=== PATIENT | female | born 1970 ===

== ENCOUNTER 2020-08-21 08:46 | Outpatient (REF) | payer MEDICAID, SELFPAY | END 2020-08-21 08:47 | disposition home or self-care (01) | LOC: HO.LAB 08:46 | PROVIDERS: PCP Internal Medicine Geriatric Medicine; Visit Provider Internal Medicine | DX: Z20.828 Contact with and (suspected) exposure to other viral communicable diseases (principal) | CPT/HCPCS: C9803; U0003 ==

== ENCOUNTER 2020-11-08 10:49 | Outpatient (REF) | payer MEDICAID, SELFPAY | END 2020-11-08 10:50 | disposition home or self-care (01) | LOC: HO.LAB 10:49 | PROVIDERS: Visit Provider Internal Medicine | DX: Z20.822 Contact with and (suspected) exposure to COVID-19 (principal) | CPT/HCPCS: 36415; C9803; U0003; U0005 ==

== ENCOUNTER 2020-11-29 06:17 | Emergency (ER) | payer MEDICAID, SELFPAY ==
--- NOTE | ~2020-11-29 | CT_ITS ---
EXAMINATION: CT ABDOMEN AND PELVIS WITHOUT CONTRAST CLINICAL INFORMATION: Right flank pain COMPARISON: CT abdomen and pelvis 04/05/2019 TECHNIQUE: Multidetector volumetric imaging was performed from the superior aspect of the liver through the pubic symphysis. Sagittal and coronal reformatted images were obtained on the technologist's workstation. This CT examination was performed using dose optimization techniques as appropriate, variously including the following: *Automated exposure control *Adjustment of mA and/or kV according to patient size (this includes techniques or standardized protocols for targeted exams where dose is matched to indication/reason for exam; i.e. extremities or head) *Use of iterative reconstruction technique DLP: 1470 mGy-cm FINDINGS: LUNG BASES: The lung bases are clear. The heart size is normal. LIVER, GALLBLADDER, AND BILIARY TREE: The liver is mildly enlarged measuring 18 cm in length, normal shape, and diffuse hypo-attenuation. No focal hepatic lesion or biliary ductal dilatation is present. The gallbladder is unremarkable with no evidence of radiopaque gallstones, gallbladder wall thickening, or obvious pericholecystic inflammatory changes. PANCREAS: There is mild focal fatty change around the head of the pancreas similar to previous study. The body and the tail of pancreas appears unremarkable and unchanged. SPLEEN: Unremarkable. ADRENAL GLANDS: Unremarkable. KIDNEYS AND URETERS: The kidneys are normal in size, shape, and attenuation. There is a 6 mm radiopaque calculi lower pole left kidney with adjacent cortical scar. BLADDER: Unremarkable. GASTROINTESTINAL TRACT: There is scattered stool and gas seen throughout the colon without any significant distention. The small bowel loops are normal caliber. The appendix is normal caliber. ABDOMINAL WALL: No significant hernia is appreciated. LYMPH NODES: Normal. VASCULAR: Unremarkable. PELVIC VISCERA: The prostate gland is normal size. There is no free fluid or free air. No abnormal pelvic or inguinal lymph nodes seen. OSSEOUS STRUCTURES: There is no lytic or sclerotic process seen. There are degenerative disc changes with posterior spondylosis and L5-S1 and L4-L5 disc levels. CT/CT abdomen pelvis wo con IMPRESSION: Nonobstructive radiopaque calculi lower pole cortex left kidney with a small cortical scar, stable. There is no radiopaque calculi seen in the right kidney. There is no hydronephrosis.
[2020-11-29 07:07] VITALS: BP 144/74; PULSE 72; RESP 16; TEMP 36.7; O2SAT 96; BMI 56.2
[2020-11-29 07:15] VITALS: BP 139/69; PULSE 68; RESP 16; O2SAT 96
--- NOTE | 2020-11-29 07:21 | ED_ITS ---
HPI - General Adult General Chief complaint: Abdominal Pain Stated complaint: KIDNEY STONES Time Seen by Provider: 11/29/20 07:12 Source: patient Mode of arrival: ambulatory Limitations: language barrier (Patient speaks Lebanese only, I offered cobol application developer but the patient declined and requests that her sister interpret for her) History of Present Illness HPI narrative: 50-year-old female who presents emergency department for evaluation of right flank and right lower quadrant abdominal pain which began suddenly at 3:30 a.m. on the morning arrival. The patient states that she woke up with the pain. She states the pain has been constant, sharp and is 10/10. The pain is associated with nausea without vomiting. She denied frequency, urgency or dysuria. She has not noted any hematuria. She states she has had kidney stones in the past and has required surgical intervention. She believes her last kidney stone was 1 year prior. Patient has a history of a hysterectomy and 1 ovary removed, is also had proc edures to remove kidney stones. She states that she had COVID-19 infection 2 months prior. She reports that she has tested negative since recovering. Related Data Previous Rx's Medication Instructions Recorded gabapentin 400 mg capsule 400 mg PO TID #270 cap 07/04/20 tramadol 50 mg tablet 100 mg PO BID PRN #360 tab 07/04/20 hydromorphone 2 mg PO Q4-6H PRN #14 tab 11/29/20 ondansetron 4 mg PO Q6-8H PRN #14 tab 11/29/20 Allergies Allergy/AdvReac Type Severity Reaction Status Date / Time morphine [Morphine] Allergy Severe ANAPHYLAXIS, Unverified 05/23/20 17:01 shortness of breath Review of Systems Review of Systems: Yes all other systems are reviewed and are negative [facility] [facility] Past Medical History [facility] Narrative: Patient has history of fibromyalgia, migraines, kidney stones, hysterectomy, 1 ovary removed. She denies tobacco use, she denies alcohol and drug use. Social History Social History Advance Directives: No Advance Directives Information Provided: No Physical Exam Vital Signs: Vital Signs: Last Vital Signs Temp 98.1 F 11/29/20 07:07 Pulse 72 11/29/20 08:08 Resp 16 11/29/20 09:14 BP 125/47 L 11/29/20 08:08 Pulse Ox 98 11/29/20 08:08 Body Mass Index 56.2 Const: General: cooperative and in distress moderate (Secondary to pain) Nutritional Appearance: obese Orientation/consciousness: oriented to person and oriented to place Limitations: no limitations HENMT: Head: Yes normal to inspection, Yes normocephalic and Yes atraumatic Ears: external ears normal General nose exam: Normal external nose present Face and sinus: Yes normal facial exam Mouth: Normal oral and palatal mucosa present Throat: Yes posterior oropharynx normal Eyes: Periorbital: periorbital findings normal Eyelids: Yes eyelids normal Conjunctivae: conjunctivae normal Sclerae: sclerae normal Corneas: corneas normal Pupils: Equal, round and reactive pupils present Direct Ophthalmoscopy: normal light reflex Neck: Neck: Yes full ROM, Yes no lymphadenopathy, Yes no meningeal signs, Yes trachea midline and Yes supple Chest: Chest palpation & inspection: normal inspection of the chest and normal palpation of entire chest wall Resp: Effort & Inspection: normal respiratory effort and able to speak in complete sentences Auscultation: clear to auscultation bilaterally Cardio: Rate: regular rate Rhythm: regular rhythm Heart sounds: S1 normal heart sound present, S2 normal heart sound present and no murmurs GI: Inspection: Yes normal to inspection Palpation (GI): Soft to palpation, nontender, no guarding, not rigid and No hepatosplenomegaly present : General: Yes no CVA tenderness Back/Spine/Pelvis: Back: no CVA tenderness Cervical Spine: normal cervical lordosis Thoracic/Lumbar Spine: thoracic and lumbar spine normal to inspection Skin: Lesions: no lesions Rashes: no rashes Wounds: no wounds Neuro: General: oriented to person, oriented to place and no meningeal signs Cranial nerves: Yes CN's II-XII intact bilaterally and Yes Equal, round and reactive pupils present Cognition (Neuro): normal cognition Motor exam (neuro): 5/5 motor strength present throughout Extrem: General: Yes normal to inspection and Yes full ROM Psych: Appearance: well kempt Mental Status: mental status grossly normal Speech and movement: Normal speech and movement present Affect: Other affect and mood findings present (Patient is in pain) Attitude: cooperative Thought process: Normal thought process present Thought content: Normal thought content present Course Course Course Narrative: 50-year-old female who presents emergency department for evaluation of sudden onset of right flank and right lower quadrant abdominal pain which began at 3:30 a.m. on the day of arrival. Patient has a history of kidney stones and she believes that her pain is similar to her kidney stone pain that she has had in the past. Physical examination did reveal a she was in distress secondary to her pain. I ordered Toradol 30 mg IV for her pain and Zofran 4 mg IV for her nausea. I also ordered normal saline x1 L IV. A CBC, CMP, urinalysis and CT scan of the abdomen pelvis without IV contrast will be obtained as well. 1005: The patient did get some relief of her pain with the initial dose of Tylenol however her pain returns required Dilaudid 1 mg IV and Zofran 4 mg IV. Laboratory evaluation did reveal a slightly low platelet count a [id number] otherwise was unremarkable with a negative urinalysis. The patient's CT scan of the abdomen pelvis did not reveal a clear cause for her right-sided abdominal pain, she does have a 6 mm left renal stone. I did discuss these findings with the patient. Given her presentation I suspect that she may have had a very small kidney stone that she passed. The patient will be discharged home and advised to take Tylenol and ibuprofen for pain. For pain not relieved by these 2 medications she is to take Dilaudid 1 mg every 4-6 hours as needed for pain. She was also advised to take Zofran ODT 4 mg every 6-8 hours as needed for nausea and vomiting. The patient's [employer] search revealed that the patient gets tramadol on a regular basis for her fibromyalgia. Medical Decision Making Lab Data Result diagrams: 11/29/20 07:36 11/29/20 07:36 Labs: Lab Results 11/29/20 11/29/20 11/29/20 Range/Units 07:36 07:36 08:11 WBC 7.8 (4.8-10.8) X10*3/uL RBC 4.71 (4.20-5.50) X10*6/uL Hgb 13.4 (12.0-16.0) g/dl Hct 41.8 (37-47) % MCV 88.7 (80-98) fL MCH 28.5 (27.0-33.0) pg MCHC 32.1 (31.0-35.0) g/dl RDW 13.7 (11.0-16.0) % Plt Count 129 L (160-400) X10*3/uL MPV 11.8 (9.4-12.3) fL Immature Gran % (Auto) 0.4 (0.0-0.4) % Neut % (Auto) 78.8 H (45-73) % Lymph % (Auto) 15.4 L (20-40) % [place] % (Auto) 4.1 (2-11) % Eos % (Auto) 1.0 (0-4) % Baso % (Auto) 0.3 (0-2) % Lymph # (Auto) 1.2 (1.2-4.9) X10*3/uL [place] # (Auto) 0.3 (0.1-1.2) X10*3/uL Eos # (Auto) 0.1 (0.0-0.4) X10*3/uL Baso # (Auto) 0.0 (0.0-0.2) X10*3/uL Abs Immat Gran (auto) 0.03 (0.00-0.03) X10*3/uL Absolute Neuts (auto) 6.1 (2.0-8.3) X10*3/uL Absolute Nucleated RBC 0.000 (0.0-0.012) X10*3/uL Nucleated RBC % (auto) 0.0 (0.0-0.2) /100WBC Sodium 139 (135-145) mmol/L Potassium 4.3 (3.3-5.1) mmol/L Chloride 105 (96-108) mmol/L Carbon Dioxide 24 (22-29) mmol/L Anion Gap 14 (12-20) BUN 15 (9-16) mg/dL Creatinine 0.73 (0.5-1.4) mg/dL Estim Creat Clear Calc 120.4 Estimated GFR > 60 Random Glucose 124 H (60-115) mg/dL Calcium 9.4 (8.4-10.2) mg/dL Total Bilirubin 0.4 (0.0-1.0) mg/dL AST 21 (5-31) U/L ALT 28 (0-31) U/L Alkaline Phosphatase 119 H (39-117) U/L Total Protein 6.9 (6.5-8.0) g/dL Albumin 4.1 (3.5-5.0) g/dL Lipase 19 (8-78) U/L Urine Color YELLOW Urine Appearance CLOUDY Urine pH 8.0 (5.0-8.0) Ur Specific [place] 1.020 (1.005-1.025) Urine Protein NEG (NEG-TRACE) MG/DL Urine Glucose (UA) NEG (NEG) MG/DL Urine Ketones NEG (NEG) MG/DL Urine Blood NEG (NEG) Urine Nitrite NEG (NEG) Ur Leukocyte Esterase NEG (NEG) Discharge Plan Discharge Clinical Impression: Renal colic on right side, Nausea Patient Disposition: Home, Self-Care Instructions: Renal Colic (ED) Additional Instructions: Your laboratory evaluation was unremarkable. The CT scan of your abdomen and pelvis without IV contrast did not reveal a clear cause for your pain. Given your presentation and history of kidney stones, I suspect that she had a small kidney stone the past and this is what ca used her pain. You do have a 6 mm kidney stone of the left kidney but this is not causing your pain.0 Take ibuprofen 200 mg pills, 3 pills every 6 hours as needed for pain. Take Tylenol (acetaminophen) 500 mg pills, 2 pills every 4 to 6 hours as needed for pain. For pain not relieved by ibuprofen or Tylenol take Dilaudid (hydromorphone) 2 mg pills, 1 pill every 4-6 hours as needed for pain. This is a narcotic medication and if your concerned about addiction do not get this medication filled or you can ask the pharmacist for less pills. This medication will make you sleepy, do not drive or work while taking this medication. DO NOT take tramadol while you are taking Dilaudid. Follow-up with your doctor in 2 days. Please return to the emergency department if your symptoms get worse or if you develop any symptoms that are concerning to you. Prescriptions: New hydromorphone 2 mg tablet 2 mg PO Q4-6H PRN (Reason: pain) Qty: 14 RF: 0 ondansetron 4 mg tablet,disintegrating 4 mg PO Q6-8H PRN (Reason: nausea and vomiting) Qty: 14 RF: 0 No Action tramadol 50 mg tablet 100 mg PO BID PRN (Reason: pain) Qty: 360 RF: 1 gabapentin 400 mg capsule 400 mg PO TID Qty: 270 RF: 1
[2020-11-29] MEDS: 0.9 % Sodium Chloride 1,000 ML 999 ML IV (07:27)
[2020-11-29] MEDS: ondansetron HCL 4 MG/2 ML VIAL IVPUSH (07:27)
[2020-11-29] MEDS: Ketorolac Tromethamine 30 MG/ML VIAL IVPUSH (07:34)
[2020-11-29 07:40] LABS: MANUAL DIFF FLAG NO
[2020-11-29 07:44] LABS: Basophils Percent Auto 0.3 % (0-2); Eosinophils Absolute Auto 0.1 X10*3/uL (0.0-0.4); Hematocrit 41.8 % (37-47); Hemoglobin 13.4 g/dl (12.0-16.0); Imm Gran Abs Auto 0.03 X10*3/uL (0.00-0.03); Imm Gran Pct Auto 0.4 % (0.0-0.4); Lymphocytes Absolute Auto 1.2 X10*3/uL (1.2-4.9); Lymphocytes Percent Auto 15.4 % (20-40); Mean Corpuscular HGB Conc 32.1 g/dl (31.0-35.0); Mean Corpuscular Hemoglobin 28.5 pg (27.0-33.0); Mean Corpuscular Volume 88.7 fL (80-98); Mean Platelet Volume 11.8 fL (9.4-12.3); Monocytes Absolute Auto 0.3 X10*3/uL (0.1-1.2); Monocytes Percent Auto 4.1 % (2-11); Neutrophils Absolute Auto 6.1 X10*3/uL (2.0-8.3); Neutrophils Percent Auto 78.8 % (45-73); Platelet Count 129 X10*3/uL (160-400); Red Blood Count 4.71 X10*6/uL (4.20-5.50); Red Cell Distribution Width 13.7 % (11.0-16.0); White Blood Count 7.8 X10*3/uL (4.8-10.8)
--- NOTE | 2020-11-29 07:51 | PC.NURSE ---
pt arrives to the ED with 10/10 abdominal pain radiating to flank, has history of kidney stones. pt is alert and oriented x3 and is kyrgyz speaking. respiratory rate is increased but effort is non-labored. pt is crying in pain and moving around in bed. pt denies feeling short of breath at this time. md at bedside during assessment. pt aware of plan of care.
[2020-11-29 08:08] VITALS: BP 125/47; PULSE 72; RESP 16; O2SAT 98
[2020-11-29 08:20] LABS: Alanine Aminotransferase 28 U/L (0-31); Albumin Level 4.1 g/dL (3.5-5.0); Alkaline Phosphatase 119 U/L (39-117); Anion Gap 14 (12-20); Aspartate Amino Transferase 21 U/L (5-31); Bilirubin Total 0.4 mg/dL (0.0-1.0); Blood Urea Nitrogen 15 mg/dL (9-16); Calcium 9.4 mg/dL (8.4-10.2); Carbon Dioxide 24 mmol/L (22-29); Chloride 105 mmol/L (96-108); Creatinine Clr Calc Pharmacy 120.4; Estimated Glomerular Filt Rate > 60; Glucose Random 124 mg/dL (60-115); Lipase 19 U/L (8-78); Potassium 4.3 mmol/L (3.3-5.1); Sodium 139 mmol/L (135-145); Total Protein 6.9 g/dL (6.5-8.0)
[2020-11-29 08:22] LABS: Glucose Urine UA NEG (NEG); Leukocyte Esterase Urine NEG (NEG); Nitrite Urine NEG (NEG); Urine Blood NEG (NEG); Urine Ketones NEG (NEG); Urine Protein NEG (NEG-TRACE)
[2020-11-29 08:23] LABS: Appearance Urine CLOUDY; Color Urine YELLOW
[2020-11-29 09:14] VITALS: RESP 16
[2020-11-29] MEDS: HYDROmorphone HCl 1 MG/ML SYRINGE IVPUSH (09:14)
[2020-11-29 10:19] VITALS: BP 110/42; PULSE 62; RESP 16; O2SAT 96
[2020-11-29 10:41] VITALS: PULSE 82; RESP 16
== END 2020-11-29 10:27 | disposition home or self-care (01) ==
PROVIDERS: Emergency Provider Emergency Medicine Emergency Medical Services; PCP Internal Medicine Geriatric Medicine
DX: N20.0 Calculus of kidney (principal); R10.31 Right lower quadrant pain; R11.0 Nausea; Z79.899 Other long term (current) drug therapy; Z86.16 Personal history of COVID-19
CPT/HCPCS: 36415; 74176; 80053; 81003; 83690; 85025; 96365; 96375; 99284; J1170; J1885; J2405

== ENCOUNTER → 2020-12-18 14:48 | Outpatient (BNVA) | payer MEDICAID, SELFPAY | PROVIDERS: PCP Internal Medicine Geriatric Medicine; Visit Provider Student in an Organized Health Care Education/Training Program | DX: M47.816 Spondylosis without myelopathy or radiculopathy, lumbar region (principal) | CPT/HCPCS: 99212 ==

== ENCOUNTER → 2021-01-14 14:34 | Outpatient (BNVA) | payer MEDICAID, SELFPAY | PROVIDERS: PCP Internal Medicine Geriatric Medicine; Visit Provider Nurse Practitioner Family | DX: M47.816 Spondylosis without myelopathy or radiculopathy, lumbar region (principal); M25.552 Pain in left hip; M53.3 Sacrococcygeal disorders, not elsewhere classified | CPT/HCPCS: 99202 ==

== ENCOUNTER 2021-01-16 08:38 | Outpatient (REF) | payer MEDICAID, SELFPAY ==
--- NOTE | ~2021-01-16 | XR_ITS ---
EXAMINATION: LUMBAR SPINE AND LEFT HIP X-RAY CLINICAL INFORMATION: Spondylosis without myelopathy. Left hip pain. COMPARISON: Previous lumbar spine x-ray August 2016 TECHNIQUE: 3 views of the lumbar spine and 2 views of the left hip FINDINGS: Left hip: Bone alignment is normal. No fracture or dislocation is seen. There is mild left hip arthritis with small osteophytes. Soft tissues are unremarkable. Lumbar spine: There is curvature of the lumbar spine to the left. Bone alignment is otherwise normal. No fracture or dislocation is seen. There is degenerative disc disease at L5-S1. There is lower lumbar spine facet arthritis. There are degenerative changes visualized lower thoracic spine. XR/XR hip LT min 2V IMPRESSION: Left hip: Mild arthritis with small osteophytes. Lumbar spine: Scoliosis and degenerative changes.
--- NOTE | ~2021-01-16 | XR_ITS ---
EXAMINATION: LUMBAR SPINE AND LEFT HIP X-RAY CLINICAL INFORMATION: Spondylosis without myelopathy. Left hip pain. COMPARISON: Previous lumbar spine x-ray August 2016 TECHNIQUE: 3 views of the lumbar spine and 2 views of the left hip FINDINGS: Left hip: Bone alignment is normal. No fracture or dislocation is seen. There is mild left hip arthritis with small osteophytes. Soft tissues are unremarkable. Lumbar spine: There is curvature of the lumbar spine to the left. Bone alignment is otherwise normal. No fracture or dislocation is seen. There is degenerative disc disease at L5-S1. There is lower lumbar spine facet arthritis. There are degenerative changes visualized lower thoracic spine. XR/XR lumbar spine 2-3V IMPRESSION: Left hip: Mild arthritis with small osteophytes. Lumbar spine: Scoliosis and degenerative changes.
== END 2021-01-16 08:39 | disposition home or self-care (01) ==
LOC: HO.XRAY 08:38
PROVIDERS: PCP Internal Medicine Geriatric Medicine; Visit Provider Nurse Practitioner Family
DX: M47.816 Spondylosis without myelopathy or radiculopathy, lumbar region (principal); M25.552 Pain in left hip
CPT/HCPCS: 72100; 73502

== ENCOUNTER → 2021-01-24 15:44 | Outpatient (BNVA) | payer MEDICAID, SELFPAY | PROVIDERS: PCP Internal Medicine Geriatric Medicine; Visit Provider Nurse Practitioner Family | DX: M47.816 Spondylosis without myelopathy or radiculopathy, lumbar region (principal); M53.3 Sacrococcygeal disorders, not elsewhere classified; M16.12 Unilateral primary osteoarthritis, left hip | CPT/HCPCS: 99212 ==

== ENCOUNTER 2021-04-08 06:12 | Outpatient (REF) | payer MEDICAID, SELFPAY | END 2021-04-08 06:13 | disposition home or self-care (01) | LOC: HO.RADIR 06:12 | PROVIDERS: Visit Provider Anesthesiology | DX: Z13.89 Encounter for screening for other disorder (principal) ==

== ENCOUNTER 2021-05-13 06:38 | Outpatient (REF) | payer MEDICAID, SELFPAY | END 2021-05-13 06:39 | disposition home or self-care (01) | LOC: HO.RADIR 06:38 | PROVIDERS: Visit Provider Anesthesiology | DX: Z13.89 Encounter for screening for other disorder (principal) | CPT/HCPCS: J3300; Q9967 ==

== ENCOUNTER 2021-05-27 07:49 | Outpatient (REF) | payer MEDICAID, SELFPAY ==
--- NOTE | ~2021-05-27 | FL_ITS ---
EXAMINATION: XR FLUOROSCOPY WITH IMAGES CLINICAL INFORMATION: Arthritis. COMPARISON: None. TECHNIQUE: Fluoroscopy performed by Dr. Geraldo Hinds. Fluoroscopy time: 0.2 minutes DAP: 5 Gycm2 Images: 2 FINDINGS: Images demonstrate needle placement and contrast injection of the right hip joint. FL/FL guidance in treatment room IMPRESSION: Fluoroscopy guidance for right hip pain management procedure.
== END 2021-05-27 07:50 | disposition home or self-care (01) ==
LOC: HO.RADIR 07:49
PROVIDERS: Visit Provider Anesthesiology
DX: M16.12 Unilateral primary osteoarthritis, left hip (principal); M25.552 Pain in left hip
CPT/HCPCS: 20610; J3300; Q9967

== ENCOUNTER 2021-06-06 10:35 | Day surgery (SDC) | payer MEDICAID, SELFPAY ==
--- NOTE | ~2021-06-06 | FL_ITS ---
EXAMINATION: XR FLUOROSCOPY WITH IMAGES CLINICAL INFORMATION: Back pain. Medial branch block COMPARISON: Radiographs lumbar spine 01/16/2021 TECHNIQUE: Fluoroscopy performed by Dr. Geraldo Hinds. Fluoroscopy time: 0.6 minutes DAP: 16.0 Gycm2 Images: 5 FINDINGS: There are spinal needles overlying the outer right L3, bilateral L4, and bilateral L5 neural foramen. There is contrast seen in the respective nerve sheaths. Some early transforaminal epidural extension is suggested. No visible vascular communication. FL/FL guidance in OR IMPRESSION: Fluoroscopy for pain management procedures.
--- NOTE | 2021-06-06 07:19 | P.HPSUR_ITS ---
Pre-Procedural Eval Section A Date of Service: 06/06/21 The patient is an INPATIENT: No Changes since office visit: Yes Patient answered all questions The History & Physical has been completed within 30 days and I have reviewed it.: No Section B Chief Complaint: Lumbar Spondylosis Details of Present Illness: as above Relevant Family History (Specify if Yes): No Relevant Social History: None Present Medications: see Short Stay Collaborative assessment Medical History: No relevant PMH History of Previous Operations: No relevant previous surgery Allergies: Allergies Allergy/AdvReac Type Severity Reaction Status Date / Time morphine [Morphine] Allergy Severe ANAPHYLAXIS, Verified 05/27/21 11:34 shortness of breath Review of Systems Sugical H&P ROS: Negative: Constitution, Cardiovascular, Respiratory, Neurological, Psychiatric, Hem-Onc, Allergic/Immunologic, Gastrointestinal, Genitourinary, Musculoskeletal, Integumentary, Endocrine and Eyes/Ears /Nose/Throat Exam Surgical H&P Exam: Normal: HEENT, Normal: Heart, Normal: Lungs, Normal: Extremities, Normal: Abdomen, Normal: Skin and Normal: Neurological Plan Diagnosis/Plan: Unchanged I have reviewed the history and physical and performed a pertinent physical examination on my patient. No changes have occurred unless specified.
--- NOTE | 2021-06-06 07:31 | P.OP_ITS ---
Operative Note Operative Note Date of Service: 06/06/21 Narrative: Diagnostic medial branch block L3,L4-5 bilateral Informed consent was explained to the patient. All questions were explained and answered.? The patient was taken inside of the operating room where she was pos itioned prone on the operating table.? Time-out was performed delineating patient's name and date of , correct site, side, the nature of the procedure, patient's allergy, preoperative antibiotic if needed.? All operating room staff was participating in OR time-out procedure.? He is lower back was prepped with ChloraPrep and draped with sterile towels.?C- arm was brought over the operating field and sq picture of L4, L 5 vertebra? and S1 area were delineated on the screen.? Points of interest were delineated as confluence of superior articular process of L4 vertebra bilaterally with corres ponding transverse processes, as well as confluence of superior articular process of L5 vertebra with corresponding transverse processes bilaterally, as well as connection of the sacral alae bilaterally with superior articular process of S1.? The projection of the point of interest to the skin were injected with the small amount of local anesthetic lidocaine 2% 1-1.5 cc.? And after that 5 inch 22 gauge spinal needle was driven sequentially to the point of interest in tunnel vision fashion.? To reach the target the 5 in needle went all the way in with the hub on the skin. When the needle gently contacted the bone small amount of the contrast was injected demonstrating no intravascular and no intrathecal uptake of the contrast.? After that no more than 1 cc of bupivacaine 0.5% was injected into each needle position, a needles were withdrawn sterile Band-Aid were applied.? The patient tolerated procedure well.? He went home without immediate complication. In case of positive outcome radiofrequency ablation with instruments available to us are probably impossible, therefore the only option for this patient would be therapeutic medial branch blocks. ?
[2021-06-06 11:08] VITALS: BP 145/75; PULSE 69; RESP 18; TEMP 36.6; O2SAT 96; BMI 56.9
--- NOTE | 2021-06-06 11:11 | P.CONAN_ITS ---
[facility] Active Problems Active Problems: All Active Problems (Updated 01/27/21 @ 07:46 by Daly pepper, REHABILITATION PSYCHOLOGIST) Osteoarthritis of left hip (Acute) Sacroiliac joint pain (Acute) Left hip pain (Acute) Lumbar spondylosis (Acute) Past Medical History Medical History Lumbar spondylosis Functional capacity: wheelchair bound Family History Family history of problems with anesthesia: Yes Surgical History History of Problems with Anesthesia: Yes Social History Social History Household Members: Spouse Housing: Apartment Alcohol intake: never Advance Directives: No Advance Directives Information Provided: Yes Meds Allergies Allergy/AdvReac Type Severity Reaction Status Date / Time morphine [Morphine] Allergy Severe ANAPHYLAXIS, Verified 05/27/21 11:34 shortness of breath Home Medications Medication Instructions Recorded Confirmed Last Taken Type naproxen sodium 550 mg tablet 550 mg PO BID 12/18/20 01/24/21 Unknown History (Anaprox DS) Exam Exam Date and Time: June 06, 2021 1111 Air[address] Mallampati Class: II (Full neck) TM Dist: >3cm Neck ROM: Limited Loose/Missing/Broken Teeth: No Heart: RRR Lungs: CTA Assessment and Plan Assessment Anesthesia Assessment: Anesthesia Plan Discussed Final Anesthetic Review Family History of Problems with Anesthesia: Yes History of Problems with Anesthesia: Yes NPO: Yes ASA Class: III Final Preanesthetic Review: Meds/Allgs Chart Reviewed, Consent Obtained/Reviewed and Anes Risks/Benef Reviewed Patient Risk: Intermediate Procedure Risk: Intermediate Anesthetic Plan Anesthetic Plan: MAC: Disposition: Standard PACU
--- NOTE | 2021-06-06 12:28 | PM.OP ---
Brief Operative Note Date of Service: 06/06/21 Pre-op diagnosis: Spondylosis lumbar spine, morbid obesity. Post-op diagnosis: same Procedure: Diagnostic medial branch block L3-L4 does ramus L5 bilateral Implants: In a Surgeon: Geraldo Hinds MD Anesthesia: MAC Was an Flume Ride Operator used for this Procedure?: No Estimated blood loss (mL): 0 Pathology: none sent Condition: stable Disposition: PACU
[2021-06-06 12:30] VITALS: BP 136/84; PULSE 95; RESP 16; TEMP 36.1; O2SAT 100
[2021-06-06 12:45] VITALS: BP 127/66; PULSE 61; RESP 16; TEMP 36.1; O2SAT 100
[2021-06-06 13:00] VITALS: BP 137/64; PULSE 55; RESP 16; TEMP 36.1; O2SAT 99
== END 2021-06-06 13:50 | disposition home or self-care (01) ==
PROVIDERS: PCP Internal Medicine Geriatric Medicine; Visit Provider Anesthesiology
PROC: (CPT 64493; principal; 2021-06-06 12:10)
DX: M47.816 Spondylosis without myelopathy or radiculopathy, lumbar region (principal); M54.50 Low back pain, unspecified; M53.3 Sacrococcygeal disorders, not elsewhere classified; M16.12 Unilateral primary osteoarthritis, left hip; Z79.899 Other long term (current) drug therapy; Z88.8 Allergy status to other drugs, medicaments and biological substances
CPT/HCPCS: 64493; 64494 ×2; J2250; Q9967

== ENCOUNTER → 2021-06-13 10:03 | Outpatient (BNVA) | payer MEDICAID, SELFPAY | PROVIDERS: PCP Internal Medicine Geriatric Medicine; Visit Provider Nurse Practitioner Family ==

== ENCOUNTER 2022-03-05 12:04 | Outpatient (REF) | payer MEDICAID, SELFPAY ==
[2022-03-05 12:57] LABS: Alanine Aminotransferase 17 U/L (0-31); Aspartate Amino Transferase 21 U/L (5-31); C Reactive Protein 1.08 mg/dL (< or = 0.50); Estimated Glomerular Filt Rate > 60
[2022-03-05 13:24] LABS: Erythrocyte Sedimentation Rate 15 MM/HR (0-20)
== END 2022-03-05 12:05 | disposition home or self-care (01) ==
LOC: HO.LAB 12:04
PROVIDERS: PCP Internal Medicine Geriatric Medicine; Visit Provider Nurse Practitioner Family
DX: M47.816 Spondylosis without myelopathy or radiculopathy, lumbar region (principal); M25.552 Pain in left hip; Z79.899 Other long term (current) drug therapy
CPT/HCPCS: 36415; 82565; 84450; 84460; 85652; 86140; 99212

== ENCOUNTER 2022-03-20 08:44 | Outpatient (REF) | payer MEDICAID, SELFPAY ==
--- NOTE | ~2022-03-20 | MM_ITS ---
EXAMINATION: MM SCREENING DIGITAL BREAST TOMOSYNTHESIS, BILATERAL CLINICAL INFORMATION: Screening. Asymptomatic. The lifetime risk of breast cancer based on the Tyrer-Cuzick Model is 13%. COMPARISON: Mammography: 08/10/2019, 10/08/2012 TECHNIQUE: Digital breast tomosynthesis is performed in both the craniocaudal and mediolateral oblique views along with computer-aided detection (CAD). Synthesized 2D images are generated from the tomosynthesis. Additional left CC view is provided. FINDINGS: There are scattered areas of fibroglandular density (ACR BI-RADS breast composition Category b). There are no significant masses, abnormal calcifications, or other abnormalities. Parenchymal pattern is similar to prior studies. There is incidental low left axillary tail node again seen. No developing density or architectural abnormality. The skin contours are smooth. MM/MM tomosynthesis screening BI IMPRESSION: No mammographic evidence of malignancy. ASSESSMENT: BI-RADS 1: Negative RECOMMENDATION: Routine annual mammography screening. This patient's information was entered into a reminder system with a target due date for their next mammogram.
== END 2022-03-20 08:45 | disposition home or self-care (01) ==
LOC: HO.MAMMO 08:44
PROVIDERS: Visit Provider Internal Medicine Geriatric Medicine
DX: Z12.31 Encounter for screening mammogram for malignant neoplasm of breast (principal)
CPT/HCPCS: 77063; 77067

== ENCOUNTER → 2022-10-20 08:30 | Outpatient (BNVA) | payer MEDICAID, SELFPAY | PROVIDERS: PCP Internal Medicine Geriatric Medicine; Visit Provider Nurse Practitioner Family | DX: M47.816 Spondylosis without myelopathy or radiculopathy, lumbar region (principal); M25.562 Pain in left knee; M79.7 Fibromyalgia | CPT/HCPCS: 99212 ==

== ENCOUNTER 2022-11-27 08:40 | Outpatient (REF) | payer MEDICAID, SELFPAY ==
[2022-11-27 09:59] LABS: Alanine Aminotransferase 13 U/L (0-31); Albumin Level 3.8 g/dL (3.5-5.0); Alkaline Phosphatase 134 U/L (39-117); Anion Gap 10 (12-20); Aspartate Amino Transferase 18 U/L (5-31); Bilirubin Total 0.7 mg/dL (0.0-1.0); Blood Urea Nitrogen 13 mg/dL (9-16); Calcium 9.3 mg/dL (8.4-10.2); Carbon Dioxide 27 mmol/L (22-29); Chloride 107 mmol/L (96-108); Estimated Glomerular Filt Rate > 60; Glucose Random 83 mg/dL (60-115); Potassium 4.2 mmol/L (3.3-5.1); Sodium 140 mmol/L (135-145); Total Protein 6.1 g/dL (6.5-8.0)
[2022-11-27 10:12] LABS: Amphetamine Screen Urine Not Detected (Not Detect); Barbiturates, Urine Not Detected (Not Detect); Benzodiazepines Screen Urine Not Detected (Not Detect); Cannabinoid Screen Urine Not Detected (Not Detect); Cocaine Screen Urine Not Detected (Not Detect); Fentanyl, urine Not Detected (Not Detect); Opiate Screen Urine Not Detected (Not Detect); Phencyclidine Screen Urine Not Detected (Not Detect)
== END 2022-11-27 08:41 | disposition home or self-care (01) ==
LOC: HO.LAB 08:40
PROVIDERS: PCP Internal Medicine Geriatric Medicine; Visit Provider Nurse Practitioner Family
DX: M47.816 Spondylosis without myelopathy or radiculopathy, lumbar region (principal); Z79.899 Other long term (current) drug therapy
CPT/HCPCS: 80053; 80307; 80373

== ENCOUNTER 2023-01-04 15:12 | Outpatient (REF) | payer MEDICAID, SELFPAY ==
--- NOTE | ~2023-01-04 | XR_ITS ---
EXAMINATION: XR KNEE, LEFT CLINICAL INFORMATION: Pain x4 days. COMPARISON: None available. TECHNIQUE: Four views of the left knee. FINDINGS: There is loss of tricompartment joint space with mild medial and patellofemoral compartment periarticular spurring. No loose bodies, acute fracture or dislocation seen. No abnormal joint effusion. XR/XR knee LT 4V IMPRESSION: Degenerative arthritic changes left knee. No visible acute fracture or dislocation seen.
== END 2023-01-04 15:13 | disposition home or self-care (01) ==
LOC: HO.HHCX 15:12
PROVIDERS: PCP Internal Medicine Geriatric Medicine; Visit Provider Emergency Medicine
DX: M25.562 Pain in left knee (principal)
CPT/HCPCS: 73564

== ENCOUNTER 2023-01-11 09:00 | Outpatient (RCR) | payer MEDICAID, SELFPAY ==
--- NOTE | 2023-02-15 09:55 | MHC.PT.DC ---
[facility] [place] Office [place] Office [place] Office [address] Lew Evans [address] [phone] F: [phone] F: [phone] F: [phone] F: [phone] Physical Therapy Discharge Report Diagnosis: LEFT KNEE AND LOW BACK PAIN (KP) Date of Surgery: Date of Evaluation: 12/10/22 Date of Discharge: 02/15/23 Treatments to Date: 6 Cancellations to Date: 3 No Shows to Date: 1 Discharge Status: Patient Elected to Stop Discharge Summary: Pt did not schedule additional visits and attempts to reach by phone where unsuccessful. As it has been over 30 days we will discharge the current chart. Electronically signed by: Kylee Parr PT, DPT Please sign and return to therapist. Thank you for your referral.
== END 2023-02-15 09:54 | disposition home or self-care (01) ==
LOC: HO.PT 09:00
PROVIDERS: PCP Internal Medicine Geriatric Medicine; Visit Provider Nurse Practitioner Family
DX: M25.562 Pain in left knee (principal); M47.816 Spondylosis without myelopathy or radiculopathy, lumbar region
CPT/HCPCS: 97110; 97162

== ENCOUNTER 2023-02-23 07:52 | Outpatient (REF) | payer MEDICAID, SELFPAY | END 2023-02-23 07:53 | disposition home or self-care (01) | LOC: HO.HOSX 07:52 | PROVIDERS: Visit Provider Physician Assistant | DX: M25.562 Pain in left knee (principal) | CPT/HCPCS: 20610; 73560; 73565; 99212; J1040 ==

== ENCOUNTER 2023-05-06 09:24 | Outpatient (AMB) | payer MEDICAID, SELFPAY ==
--- NOTE | 2023-05-06 09:28 | A.OFFVIS_ITS ---
Intake Vital Signs 05/06/23 09:38 Height 5 ft 2 in Weight 237 lb 7.005 oz BMI 43.4 BP 112/68 Blood Pressure Location Lt brachial Position Sitting Pulse 62 Pulse Source Pulse Oximeter Temp 97.3 F Temp Source Skin Pulse Oximetry (%) 96 Oxygen Delivery Method Room Air Intake Visit Reasons: lbp Intake Note: Patient here for low back pain. Would like to renew placard. Relationship Consultant Required: Yes Relationship Consultant Language: Mountain [place] Glac[place] Guide Name: Sister Information Interpreted: clinical only Accompanied by: Sister Allergies morphine [Morphine] Allergy (Severe, Verified 05/06/23 09:30) ANAPHYLAXIS, shortness of breath Medication List - Last Reconciled 05/06/23 by Arik Weber MD amitriptyline 10 mg PO BEDTIME calcium carbonate-vitamin D3 500 mg-5 mcg (200 unit) (Oyster Shell Calcium- Vitamin D3) 1 tab PO BID clotrimazole-betamethasone 1-0.05 % appl topical docusate sodium 100 mg PO BID Donut pillow As directed gabapentin 600 mg PO TID ibuprofen 600 mg PO Q8H PRN naproxen sodium (Anaprox DS) 550 mg PO BID PRN tizanidine 2 mg PO BEDTIME PRN tramadol 100 mg (2 x 50 mg) PO BID PRN HPI HPI Comments History of Present Illness Details The patient presents with her sister who translates today. Patient has been seen for fibromyalgia and osteoarthritis. She again describes fairly widespread pains in the neck, shoulders, hands, forearms, lower back, lateral hips, and knees. The knees have significant osteoarthritis. She did get a corticosteroid injection earlier this year in the left knee from Orthopedics and that was helpful. She remains on gabapentin 600 mg t.i.d., tizanidine 2 mg q.h.s., amitriptyline 10 mg at night, and tramadol 100 b.i.d.. She says she tolerates the medications without any sedation. She is requesting a handicap placard. She does use a cane often when walking. In the past she had some benefit with lidocaine patches requesting that prescription. She also had improvement in the past with an injection in the back about 2 years ago. [facility] Medical History Arthritis Fibromyalgia Lumbar spondylosis Migraines Surgical History H/O gastric bypass Hx of bilateral cataract extraction Hx of hysterectomy Family History Mother Hypertension Stroke Dementia Father Heart disease Thyroid disease Sister Thyroid disease Social History Household Members: Spouse Housing: Apartment Alcohol intake: never Patient Tobacco Use Status: Never used Tobacco Review of Systems Const Details: Low stamina. Not sleeping well. Negative for appetite change, weight change, fever, chills, malaise Card Details: Negative chest pain, edema and syncope Resp Details: Negative for SOB, cough and wheezing GI Details: Negative indigestion/heartburn, nausea, abdominal pain, bowel changes, diarrhea, constipation and bloody stool. Details: Negative for dysuria, hematuria, nocturia, decreased force/flow and genital discharge Neuro Details: Negative for epilepsy, palsy, stroke, changes in speech, tingling and weakness Psych Details: Negative for anxiety, depression and stress Endo Details: Negative for polyuria and polydypsia Baljinder/Lymph Details: Negative for excessive bruising or bleeding. Physical Exam Vital Signs: Last Vital Signs Temp 97.3 F 05/06/23 09:38 Pulse 62 05/06/23 09:38 BP 112/68 05/06/23 09:38 Pulse Ox 96 05/06/23 09:38 Oxygen Delivery Method Room Air 05/06/23 09:38 BMI result Body Mass Index 43.4 APPEARANCE: Patient in no acute distress EYES no redness, pupils equal and reactive to light, eyelids normal. No temporal artery tenderness, redness or swelling. EXTREMITIES: No edema, no calf tenderness, normal peripheral pulses. NEURO: Oriented and alert x3. No focal weakness. Reflexes symmetric. Gait normal. SKIN: No inflammatory or neoplastic lesions. Normal color and turgor JOINT EXAM: Cervical Spine:? Full range of motion without pain; no tenderness. Thoracic Spine:? No scoliosis.? No tenderness on palpation. Lumbar Spine:? Alignment normal.? Pain with flexion at 60 degrees or any attempts at extension, tenderness to palpation over the lumbar spine.? Widespread diffuse tenderness to palpation throughout the lumbar spinal muscles and over bilateral posterior buttocks. Hands:? Normal pain-free range of motion with diffuse tenderness across the joints. No areas of bony or soft tissue swelling, increased warmth or erythema. 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 Wrists: Normal pain-free range of motion with slight dorsal tenderness but no swelling, increased warmth or erythema. Elbows: Normal pain-free range of motion without tenderness, swelling, increased warmth or erythema.? Widespread diffuse tenderness to palpation down the forea tommy. Shoulders:? Full range of motion with mild discomfort over the trapezius regions with extremes of normal range of motion. There is tenderness over the trapezius and anterior shoulder regions. No abductor weakness, swelling, increased warmth or erythema.? Hips: Full range of motion with mild lumbar pain at the extremes. No groin pain with motion. Hip bursa:? No tenderness to palpation. Knees:? Normal pain-free range of motion with mild medial tenderness but no effusion tenderness, swelling, increased warmth or erythema.? There is slight patellofemoral crepitus. Ankles:? Normal pain-free range of motion without tenderness, swelling, increased warmth or erythema. Feet:? Normal pain-free range of motion without tenderness, swelling, increased warmth or erythema. Tender points:?Tenderness to digital palpation at the occiput, trapezius, second rib, lateral epicondyle, knees, greater trochanter and gluteal area bilaterally. Results Reviewed Results Reviewed: [facility] [address] [place] [address] Drive [address] [place] [address] XRay Report Signed Patient: Sammi Kim MR#: [id number] : 1970 Acct:[id number] Age/Sex: 52 / F ADM Date: 02/23/23 Ordering Physician: Heather Rios PA-C Date of Service: 02/23/23 Procedure(s): XR knee standing BI Accession Number(s): [id number] cc: Heather Rios PA-C~ EXAMINATION: XR KNEE AP STANDING, LEFT KNEE CLINICAL INFORMATION: Left knee pain COMPARISON: None available. TECHNIQUE: AP bilateral standing view of the knees, 3 view left knee FINDINGS: On standing knee view, left knee is higher than the right. Bones are demineralized. No acute fracture or dislocation. Right: Severe medial, moderate lateral knee joint narrowings. Degenerative spurring. Left: Tricompartment spurring. Moderate medial, lateral knee and patellofemoral narrowings. Question small suprapatellar effusion. XR/XR knee standing BI IMPRESSION: Degenerative changes bilateral knees. Dictated By: Loren Crane MD Assessment & Plan Assessment & Plan (1) Lumbar spondylosis: Comment: hx diagnostic Medial Branch Block 06/06/2021 Code(s): M47.816 - Spondylosis without myelopathy or radiculopathy, lumbar region (2) Fibromyalgia: Code(s): M79.7 - Fibromyalgia Plan: She again has fatigue and widespread pains consistent with fibromyalgia. I do not see signs of an active inflammatory disease. There is more back pain than one would see with fibromyalgia and this is likely because of accompanying lumbar osteoarthritis. Since she did get a benefit in the past with pain management giving her an injection so I will try to set up another appointment for that. I think she can continue with her other medicines as above and we will add back some lidocaine patches 5%. A recheck in 6 months would be reason able. Orders: Referrals Pain Management Referral M47.816 - Spondylosis without myelopathy or radiculopathy, lumbar region Medications: New lidocaine 5% leave on most painful area for up to 12 hrs 1 patch topical DAILY 30 ea 5RF M47.816 - Spondylosis without myelopathy or radiculopathy, lumbar region Refilled gabapentin 600 mg PO TID 90 tabs 5RF M79.7 - Fibromyalgia Coding Level of Care Code Est Pt Level 3 (31869) Diagnoses Lumbar spondylosis M47.816 Fibromyalgia M79.7
[2023-05-06 09:38] VITALS: BP 112/68; PULSE 62; TEMP 36.3; O2SAT 96; BMI 43.4
== END 2023-05-06 10:02 | disposition home or self-care (01) ==
PROVIDERS: PCP Internal Medicine Geriatric Medicine; Visit Provider Internal Medicine Rheumatology
DX: M47.816 Spondylosis without myelopathy or radiculopathy, lumbar region (principal); M79.7 Fibromyalgia
CPT/HCPCS: 99213

== ENCOUNTER → 2023-05-06 09:24 | Outpatient (BNVA) | payer MEDICAID, SELFPAY | PROVIDERS: PCP Internal Medicine Geriatric Medicine; Visit Provider Internal Medicine Rheumatology | DX: M47.816 Spondylosis without myelopathy or radiculopathy, lumbar region (principal); M79.7 Fibromyalgia | CPT/HCPCS: 99212 ==

== ENCOUNTER 2023-05-20 13:05 | Outpatient (AMB) | payer MEDICAID, SELFPAY ==
[2023-05-20 13:14] VITALS: BP 114/62; PULSE 92; RESP 16; O2SAT 96; BMI 43.2
--- NOTE | 2023-05-20 13:14 | MHC.OFFVIS ---
Intake Vital Signs 05/20/23 13:14 Height 5 ft 2 in Weight 236 lb 2 oz BMI 43.2 BP 114/62 Blood Pressure Location Lt brachial Position Sitting Respiration 16 Pulse 92 Pulse Source Pulse Oximeter Pulse Oximetry (%) 96 Oxygen Delivery Method Room Air Intake Visit Reasons: Spondylosis w/o myelopathy or radiculopathy,lumbar Allergies morphine [Morphine] Allergy (Severe, Verified 05/20/23 13:15) ANAPHYLAXIS, shortness of breath HPI HPI Comments History of Present Illness Details Sammi is a very pleasant 52 year old female who presents back to the office today for follow up. Last seen here in 2020 for diagnostic lumbar MBBs. She is accompanied by her sister who interprets per patient request. Patient reports she was scheduled for RFA but covid happened and procedure was cancelled, she was then lost to follow up. She reports relief after MBB 06/2021 that lasted approx 2 months. She recently completed physical therapy 01/2023. Taking gabapentin and tramadol with no improvement of her pain. Pain today is 6/10 across lower back with intermittent radiation into her thighs but not past the level of the knee. Denies shooting or shocking pain. Denies red flag symptoms including new loss of bowel, bladder or saddle anesthesia. Prior: Today's visit was conducted via telephone to discuss results of Sammi's diagnostic MBB performed on 06/06/[address] Hnids PRIOR: Sammi returns to the office, accompanied by her sister, to review the results of her left hip and lumbar spine xrays. She states her left hip is becoming more bothersome and is unable to lay on her left side comfortably at night time. She also has BLE muscle spasms that are worse at night. PRIOR: Sammi is a pleasant 50 year old female who presents to the office with low back pain. She is accompanied by her sister who she is requesting translate, as she is mostly [place]ian speaking. She denied a music historian offered by our office. She states the pain started years ago without any inciting events, but in the past four months has been more exacerbated. Her pain radiates across the low pain and into the left hip with occasional radiation to the ankle when laying down or standing for a prolonged period. She is able to flex forward with minimal discomfort but has an exacerbation in pain when returning to a standing position. Denies any numbness, tingling, saddle anesthesia, weakness or bowel/bladder dysfunction. The pain is worse in the evening and less severe in the afternoon.? She reports pain onset was gradual, constant and rates the pain a 7/10. She states the pain is interfering with sleep and she cannot function normally.? The patient reports the pain in terms of tissue damage as stabbing. She has tried OTC medications including advil, aleve and tylenol, as well as apercreme and ice hot with minimal improvement in her pain. Lidocaine has offered the most relief, which is only moderate. Previously she has tried physical therapy, the last being over two years ago which she could not tolerate, as it was exacerbating her pain.? Denies any chiropractic manipulation, massage or acupuncture. Denies any previous back injections or? surgery. She last had imaging of her lumbar spine over 5 years ago. Previous records report degenerative changes and bilateral facet athropathy. [facility] Medical History Arthritis Fibromyalgia Lumbar spondylosis Migraines Surgical History H/O gastric bypass Hx of bilateral cataract extraction Hx of hysterectomy Family History Mother Hypertension Stroke Dementia Father Heart disease Thyroid disease Sister Thyroid disease Social History Household Members: Spouse Housing: Apartment Alcohol intake: never Patient Tobacco Use Status: Never used Tobacco Review of Systems Const All systems reviewed & are unremarkable except as noted in HPI and below Physical Exam Vital Signs: Last Vital Signs Pulse 92 05/20/23 13:14 Resp 16 05/20/23 13:14 BP 114/62 05/20/23 13:14 Pulse Ox 96 05/20/23 13:14 Oxygen Delivery Method Room Air 05/20/23 13:14 BMI result Body Mass Index 43.2 General: awake, alert, oriented. Answers questions appropriately. Fully engaged in examination. Skin: warm, dry, intact HEENT: Normocephalic. Hearing intact. Cardiac: External chest normal in appearance. Respiratory: No cough, audible wheezing or stridor. Abdomen: without gross distension. MS: No obvious swelling or deformities. Able to stand on bilateral tiptoes and bilateral heels.? Able to transition from sit to stand unassisted. Ambulates with bilaterally normal heel strike and toe off Tenderness to palpation over lumber paraspinal muscles SLR with and without dorsiflexion negative bilaterally Jefferson positive for localized pain increase over lumbar area, negative for radiation of pain to groin or legs. Facet loading positive bilaterall Neurological: Oriented to person, place, time and situation. Thought process intact. Psychiatric: Appropriate mood and affect. Good judgment and insight. Results Reviewed Results Reviewed: 01/16/2021 EXAMINATION: LUMBAR SPINE AND LEFT HIP X-RAY FINDINGS: Left hip: Bone alignment is normal. No fracture or dislocation is seen. There is mild left hip arthritis with small osteophytes. Soft tissues are unremarkable. Lumbar spine: There is curvature of the lumbar spine to the left. Bone alignment is otherwise normal. No fracture or dislocation is seen. There is degenerative disc disease at L5-S1. There is lower lumbar spine facet arthritis. There are degenerative changes visualized lower thoracic spine. IMPRESSION: Left hip: Mild arthritis with small osteophytes. Lumbar spine: Scoliosis and degenerative changes. Assessment & Plan Assessment & Plan (1) Lumbar spondylosis: Comment: hx diagnostic Medial Branch Block 06/06/2021 Code(s): M47.816 - Spondylosis without myelopathy or radiculopathy, lumbar region (2) Lumbar facet arthropathy: Code(s): M47.816 - Spondylosis without myelopathy or radiculopathy, lumbar region Plan Sammi presents back to the office today, accompanied by her sister, for follow up lower back pain. History, physical exam and provocative testing most consistent with lumbar facet arthropathy. Patient underwent L3-L4 DR L5 diagnostic MBBs in 06/2021 with 2 months of pain relief. Unfortunately due to COVID outbreak and restrictions on elective procedures her radiofrequency ablation was canceled and she subsequently was lost to follow-up. Discussed options for treatment including diagnostic interventional testing, steroid injections, peripheral nerve stimulation with Sprint, RFA and more permanent neuromodulation. Informational pamphlets provided. Will schedule for fluoroscopy guided bilateral L3-L4 DR L5 diagnostic MBB use with local anesthetic, patient will receive sublingual Ativan prior to procedure. She reports previous procedures required premedication with antianxiety agents. Justification for interventional therapy: ? Patient with average pain > 6/10 ? Patient has exhausted conservative therapy, physical therapy, NSAIDs Patient will review pamphlets and discuss with family sprint versus radiofrequency ablation. She will follow up here after diagnostic MBBs, if she received good pain relief will move forward with therapeutic treatment. She will decide at that time if she would like to proceed with Sprint or RFA. All questions and concerns have been answered and patient agrees with the plan. Follow up after injections and sooner if needed. Coding Level of Care Code Est Pt Level 3 (66998) Diagnoses Lumbar spondylosis M47.816 Lumbar facet arthropathy M47.816
== END 2023-05-20 13:33 | disposition home or self-care (01) ==
PROVIDERS: PCP Internal Medicine Geriatric Medicine; Visit Provider Registered Nurse Emergency
DX: M47.816 Spondylosis without myelopathy or radiculopathy, lumbar region (principal)
CPT/HCPCS: 99213

== ENCOUNTER → 2023-05-20 13:05 | Outpatient (BNVA) | payer OTHER, SELFPAY | PROVIDERS: PCP Internal Medicine Geriatric Medicine; Visit Provider Registered Nurse Emergency | DX: M47.816 Spondylosis without myelopathy or radiculopathy, lumbar region (principal) | CPT/HCPCS: 99212 ==

== ENCOUNTER 2023-05-27 10:19 | Outpatient (REF) | payer OTHER, SELFPAY | END 2023-05-27 10:20 | disposition home or self-care (01) | LOC: HO.MAMMO 10:19 | PROVIDERS: Visit Provider Internal Medicine Geriatric Medicine | DX: Z12.31 Encounter for screening mammogram for malignant neoplasm of breast (principal) | CPT/HCPCS: 77063; 77067 ==

== ENCOUNTER → 2023-05-27 10:45 | Outpatient (BNV) | payer SELFPAY | PROVIDERS: Visit Provider Radiology Diagnostic Radiology | DX: Z12.31 Encounter for screening mammogram for malignant neoplasm of breast (principal) | CPT/HCPCS: 77063; 77067 ==

== ENCOUNTER 2023-06-29 06:09 | Outpatient (REF) | payer SELFPAY | END 2023-06-29 06:10 | disposition home or self-care (01) | LOC: CF 06:09 | PROVIDERS: Visit Provider Anesthesiology | DX: Z13.89 Encounter for screening for other disorder (principal) ==

== ENCOUNTER 2023-10-21 13:13 | Outpatient (AMB) | payer MEDICAID, SELFPAY ==
--- NOTE | 2023-10-21 13:13 | A.OFFVIS_ITS ---
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 C/o midback pain that radiates down her legs and she gets occasional tingling and numbing. Also reports right leg/foot pain worse when doing stairs and bearing weight. Armature Repairer Required: Yes Armature Repairer Language: Women'S Garment Fitter Name: [id number] [id number] Information Interpreted: clinical only Accompanied by: Self / Same As Patient Allergies morphine [Morphine] Allergy (Severe, Verified 10/21/23 13:17) ANAPHYLAXIS, shortness of breath HPI HPI Comments History of Present Illness Details Sammi Jackson 53 yoF returns today for follow-up. Patient has been seen for fibromyalgia and osteoarthritis. She again describes fairly widespread pains in the neck, shoulders, hands, forearms, lower back, lateral hips, and knees. The knees have significant osteoarthritis. She did get a corticosteroid injection earlier this year in the left knee from Orthopedics and that was helpful. She remains on gabapentin 600 mg t.i.d., tizanidine 2 mg q.h.s., amitriptyline 10 mg at night, and tramadol 100 b.i.d.. She says she tolerates the medications without any sedation. She is requesting a handicap placard. She does use a cane often when walking. In the past she had some benefit with lidocaine patche s requesting that prescription. She also had improvement in the past with an injection in the back about 2 years ago. [facility] Medical History (Updated 10/21/23 @ 13:44 by PRINCE Benitez) intermission coordinator (current) use of non-steroidal anti-inflammatories (nsaid) Generalized osteoarthritis of multiple sites Migraines Fibromyalgia Arthritis Lumbar spondylosis Surgical History H/O gastric bypass Hx of bilateral cataract extraction Hx of hysterectomy Family History Mother Hypertension Stroke Dementia Father Heart disease Thyroid disease Sister Thyroid disease Social History Household Members: Spouse Housing: Apartment Alcohol intake: never Patient Tobacco Use Status: Never used Tobacco Review of Systems Const All systems reviewed & are unremarkable except as noted in HPI and below Physical Exam Vital Signs: Last Vital Signs Temp 96.8 F 10/21/23 13:14 Pulse 66 10/21/23 13:14 BP 128/74 10/21/23 13:14 Pulse Ox 97 10/21/23 13:14 Oxygen Delivery Method Room Air 10/21/23 13:14 BMI result Body Mass Index 44.5 APPEARANCE: Patient in no acute distress EYES no redness, pupils equal and reactive to light, eyelids normal. No temporal artery tenderness, redness or swelling. EXTREMITIES: No edema, no calf tenderness, normal peripheral pulses. NEURO: Oriented and alert x3. No focal weakness. Reflexes symmetric. Gait normal. SKIN: No inflammatory or neoplastic lesions. Normal color and turgor JOINT EXAM: Cervical Spine:? Full range of motion without pain; no tenderness. Thoracic Spine:? No scoliosis.? No tenderness on palpation. Lumbar Spine:? Alignment normal.? Pain with flexion at 60 degrees or any attempts at extension, tenderness to palpation over the lumbar spine.? Widespread diffuse tenderness to palpation throughout the lumbar spinal muscles and over bilateral posterior buttocks. Hands:? Normal pain-free range of motion with diffuse tenderness across the joints. No areas of bony or soft tissue swelling, increased warmth or erythema. Able to make a full fist and has a good acquisition specialist strength. Wrists: Normal pain-free range of motion with slight dorsal tenderness but no swelling, increased warmth or erythema. Elbows: Normal pain-free range of motion without tenderness, swelling, increased warmth or erythema.? Widespread diffuse tenderness to palpation down the forearms. Shoulders:? Full range of motion with mild discomfort over the trapezius regions with extremes of normal range of motion. There is tenderness over the trapezius and anterior shoulder regions. No abductor weakness, swelling, increased warmth or erythema.? Hips: Full range of motion with mild lumbar pain at the extremes. No groin pain with motion. Hip bursa:? No tenderness to palpation. Knees:? Normal pain-free range of motion with mild medial tenderness but no effusion tenderness, swelling, increased warmth or erythema.? There is slight patellofemoral crepitus. Ankles:? Normal pain-free range of motion without tenderness, swelling, increased warmth or erythema. Feet:? Normal pain-free range of motion without tenderness, swelling, increased warmth or erythema. Tender points:?Tenderness to digital palpation at the occiput, trapezius, second rib, lateral epicondyle, knees, greater trochanter and gluteal area bilaterally. Results Reviewed Results Reviewed: 01/16/2021 EXAMINATION: LUMBAR SPINE AND LEFT HIP X-RAY FINDINGS: Left hip: Bone alignment is normal. No fracture or dislocation is seen. There is mild left hip arthritis with small osteophytes. Soft tissues are unremarkable. Lumbar spine: There is curvature of the lumbar spine to the left. Bone alignment is otherwise normal. No fracture or dislocation is seen. There is degenerative disc disease at L5-S1. There is lower lumbar spine facet arthritis. There are degenerative changes visualized lower thoracic spine. IMPRESSION: Left hip: Mild arthritis with small osteophytes. Lumbar spine: Scoliosis and degenerative changes. [facility] [address] [place] [address] Drive [address] [place] [address] XRay Report SignedPatient: Sammi Kim MR#: [id number] : 1970 Acct:[id number] Age/Sex: 52 / F ADM Date: 02/23/23 Ordering Physician: Heather Rios PA-C Date of Service: 02/23/23 Procedure(s): XR knee standing BI Accession Number(s): [id number] cc: Heather Rios PA-C~ EXAMINATION: XR KNEE AP STANDING, LEFT KNEE CLINICAL INFORMATION: Left knee pain COMPARISON: None available. TECHNIQUE: AP bilateral standing view of the knees, 3 view left knee FINDINGS: On standing knee view, left knee is higher than the right. Bones are demineralized. No acute fracture or dislocation. Right: Severe medial, moderate lateral knee joint narrowings. Degenerative spurring. Left: Tricompartment spurring. Moderate medial, lateral knee and patellofemoral narrowings. Question small suprapatellar effusion. XR/XR knee standing BI IMPRESSION: Degenerative changes bilateral knees. Dictated By: Loren Crane MD Assessment & Plan Assessment & Plan (1) Lumbar spondylosis: Comment: hx diagnostic Medial Branch Block 06/06/2021 Code(s): M47.816 - Spondylosis without myelopathy or radiculopathy, lumbar region (2) Fibromyalgia: Code(s): M79.7 - Fibromyalgia Plan Ms. Chapa continues with fatigue and widespread pains consistent with fibromyalgia. I do not see signs of an active inflammatory disease. She continues to follow with pain management and ortho. There is more back pain than one would see with fibromyalgia and this is likely because of accompanying lumbar osteoarthritis. She did get a benefit with pain management giving her an injection. I think she can continue with her other medicines as above along with the lidocaine patches 5%. We will order some updated labs. A recheck in 6 months would be reasonable. Orders: Orders C Reactive Protein 10/21/23 M15.9 - Polyosteoarthritis, unspecified, Z79.1 - intermission coordinator (current) use of non-steroidal anti-inflammatories (NSAID) Complete Blood Count Auto Diff 10/21/23 M15.9 - Polyosteoarthritis, unspecified, Z79.1 - intermission coordinator (current) use of non-steroidal anti-inflammatories (NSAID), Z79.899 - Other nursing home (current) drug therapy Comprehensive Met. Panel 10/21/23 M15.9 - Polyosteoarthritis, unspecified, Z79.1 - assisted (current) use of non-steroidal anti-inflammatories (NSAID) Erythrocyte Sedimentation Rate 10/21/23 M15.9 - Polyosteoarthritis, unspecified, Z79.1 - assisted (current) use of non-steroidal anti-inflammatories (NSAID) Coding Level of Care Code Est Pt Level 3 (54832) Diagnoses Lumbar spondylosis M47.816 Fibromyalgia M79.7
[2023-10-21 13:14] VITALS: BP 128/74; PULSE 66; TEMP 36; O2SAT 97; BMI 44.5
== END 2023-10-21 13:48 | disposition home or self-care (01) ==
PROVIDERS: PCP Internal Medicine Geriatric Medicine; Visit Provider Nurse Practitioner Family
DX: M47.816 Spondylosis without myelopathy or radiculopathy, lumbar region (principal); M79.7 Fibromyalgia
CPT/HCPCS: 99213

== ENCOUNTER → 2023-10-21 13:13 | Outpatient (BNVA) | payer MEDICAID, SELFPAY | PROVIDERS: PCP Internal Medicine Geriatric Medicine; Visit Provider Nurse Practitioner Family | DX: M47.816 Spondylosis without myelopathy or radiculopathy, lumbar region (principal); M79.7 Fibromyalgia | CPT/HCPCS: 99212 ==

== ENCOUNTER 2024-05-29 10:09 | Outpatient (REF) | payer SELFPAY ==
--- NOTE | ~2024-05-29 | MM_ITS ---
EXAMINATION: MM SCREENING DIGITAL BREAST TOMOSYNTHESIS, BILATERAL CLINICAL INFORMATION: Screening. Asymptomatic. COMPARISON: Mammography: Comparison is made with available priors TECHNIQUE: Digital breast mammography with tomosynthesis is performed in both the craniocaudal and mediolateral oblique views along with computer-aided detection (CAD). FINDINGS: There are scattered areas of fibroglandular density (ACR BI-RADS breast composition Category b). Focal asymmetry central outer left breast middle depth stable dating back to 2012. There are no significant masses, abnormal calcifications, or other abnormalities. MM/MM tomosynthesis screening BI IMPRESSION: No mammographic evidence of malignancy. ASSESSMENT: BI-RADS BI-RADS 2 - Benign Findings RECOMMENDATION: Routine annual mammography screening. 1 year F/U This examination should not preclude the clinical evaluation of a suspicious palpable abnormality. This patient's information was entered into a reminder system with a target due date for their next mammogram. Electronically signed by: Savita Vick DO 06/09/2024 09:21 AM EDT
== END 2024-05-29 10:10 | disposition home or self-care (01) ==
LOC: HO.MAMMO 10:09
PROVIDERS: PCP Internal Medicine Geriatric Medicine; Visit Provider Internal Medicine Geriatric Medicine
DX: Z12.31 Encounter for screening mammogram for malignant neoplasm of breast (principal)
CPT/HCPCS: 77063; 77067

== ENCOUNTER → 2024-05-29 10:45 | Outpatient (BNV) | payer SELFPAY | PROVIDERS: PCP Internal Medicine Geriatric Medicine; Visit Provider Internal Medicine | DX: Z12.31 Encounter for screening mammogram for malignant neoplasm of breast (principal) | CPT/HCPCS: 77063; 77067 ==

== ENCOUNTER 2024-07-03 08:31 | Outpatient (REF) | payer SELFPAY ==
[2024-07-03 11:25] LABS: MANUAL DIFF FLAG NO
[2024-07-03 11:34] LABS: Basophils Percent Auto 0.4 % (0-2); Eosinophils Absolute Auto 0.1 X10*3/uL (0.0-0.4); Eosinophils Percent Auto 1.9 % (0-4); Hematocrit 40.5 % (37.0-47.0); Hemoglobin 12.7 g/dl (12.0-16.0); Imm Gran Abs Auto 0.01 X10*3/uL (0.00-0.03); Imm Gran Pct Auto 0.2 % (0.0-0.4); Lymphocytes Absolute Auto 1.6 X10*3/uL (1.2-4.9); Lymphocytes Percent Auto 33.3 % (20-40); Mean Corpuscular HGB Conc 31.4 g/dl (31.0-35.0); Mean Corpuscular Hemoglobin 28.7 pg (27.0-33.0); Mean Corpuscular Volume 91.6 fL (80.0-98.0); Mean Platelet Volume 12.8 fL (9.4-12.3); Monocytes Absolute Auto 0.3 X10*3/uL (0.1-1.2); Monocytes Percent Auto 5.8 % (2-11); Neutrophils Absolute Auto 2.8 x10*3/uL (2.0-8.3); Neutrophils Percent Auto 58.4 % (45-73); Platelet Count 163 X10*3/uL (160-400); Red Blood Count 4.42 X10*6/uL (4.20-5.50); White Blood Count 4.8 X10*3/uL (4.8-10.8)
[2024-07-03 11:55] LABS: Alanine Aminotransferase 17 U/L (0-31); Albumin Level 3.9 g/dL (3.5-5.0); Alkaline Phosphatase 124 U/L (39-117); Anion Gap 7 (12-20); Aspartate Amino Transferase 22 U/L (5-31); Bilirubin Total 0.6 mg/dL (0.0-1.0); Blood Urea Nitrogen 13 mg/dL (9-16); C Reactive Protein 0.38 mg/dL (< or = 0.50); Calcium 9.4 mg/dL (8.4-10.2); Carbon Dioxide 27 mmol/L (22-29); Chloride 109 mmol/L (96-108); Estimated Glomerular Filt Rate > 60; Glucose Random 89 mg/dL (60-115); Potassium 4.1 mmol/L (3.3-5.1); Sodium 139 mmol/L (135-145); Total Protein 6.6 g/dL (6.5-8.0)
[2024-07-03 12:10] LABS: Ferritin 131 ng/mL (10-250); TSH reflex Free T4 0.52 uIU/mL (0.32-4.0); Vitamin D 25-OH Total 20.9 ng/mL (>30)
[2024-07-03 12:14] LABS: Erythrocyte Sedimentation Rate 12 MM/HR (0-20)
[2024-07-03 12:44] LABS: Folate 11.6 ng/mL (> or = 4.0); Vitamin B12 582 pg/mL (200-900)
== END 2024-07-03 08:32 | disposition home or self-care (01) ==
LOC: HO.HHCL 08:31
PROVIDERS: Referring Provider Nurse Practitioner Family; Visit Provider Internal Medicine Geriatric Medicine
DX: R53.83 Other fatigue (principal); M15.9 Polyosteoarthritis, unspecified; Z79.1 Long term (current) use of non-steroidal anti-inflammatories (NSAID); Z79.899 Other long term (current) drug therapy
CPT/HCPCS: 36415; 80053; 82306; 82607; 82728; 82746; 83970; 84443; 85025; 85652; 86140

== ENCOUNTER 2024-07-04 14:17 | Outpatient (AMB) | payer SELFPAY ==
--- NOTE | 2024-07-04 14:23 | MHC.OFFVIS ---
Vital Signs 07/04/24 14:29 Height 5 ft 2 in Weight 254 lb 3.088 oz BMI 46.5 BP 115/64 Blood Pressure Location Lt brachial Position Sitting Pulse 66 Pulse Source Pulse Oximeter Pulse Oximetry (%) 97 Oxygen Delivery Method Room Air Intake Visit Reasons: fibro, oa/cm Intake Note: Patient presents for Fibromyalgia/OA. Control Valve Mechanic Required: Yes Control Valve Mechanic Language: Parachute Inspector Services: Control Valve Mechanic Present Control Valve Mechanic Name: Seferino [id number] Information Interpreted: non-clinical & clinical Allergies morphine [Morphine] Allergy (Severe, Verified 07/04/24 14:28) ANAPHYLAXIS, shortness of breath Medication List - Last Reconciled 07/04/24 by Brian Mena MD amitriptyline 10 mg PO BEDTIME calcium carbonate-vitamin D3 500 mg-5 mcg (200 unit) (Oyster Shell Calcium-Vitamin D3) 1 tab PO BID clotrimazole-betamethasone 1-0.05 % appl topical docusate sodium 100 mg PO BID Donut pillow As directed fluticasone propionate 50 mcg/actuation 2 sprays intranasal QAM gabapentin 600 mg PO DAILY ibuprofen 600 mg PO Q8H PRN lidocaine 5% 1 patch topical DAILY naproxen sodium (Anaprox DS) 550 mg PO BID PRN sertraline 50 mg PO QAM tizanidine 2 mg PO BEDTIME PRN tramadol 50 mg PO QID PRN HPI Comments Details: This is a 53-year-old female with fibromyalgia and osteoarthritis who presents for follow-up. She states that she continues to have back pain. Mostly her lower leg that travels bilaterally, she also has midthoracic pain. She states that she has been having right knee pain recently. She states that her right knee sometimes gets stuck. She has been applying heating pads as well as an OTC cream. She has not used Voltaren gel. She takes gabapentin 600 mg daily. Takes tramadol 100 mg Twice daily. 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 (nsaid) Generalized osteoarthritis of multiple sites Migraines Fibromyalgia Arthritis Lumbar spondylosis Surgical History H/O gastric bypass Hx of bilateral cataract extraction Hx of hysterectomy Family History Mother Hypertension Stroke Dementia Father Heart disease Thyroid disease Sister Thyroid disease Social History Household Members: Spouse Housing: Apartment Alcohol intake: never Patient Tobacco Use Status: Never used Tobacco Review of Systems [facility] [place] Reports back pain and Reports arthralgias Physical Exam Vital Signs: Last Vital Signs Pulse 66 07/04/24 14:29 BP 115/64 07/04/24 14:29 Pulse Ox 97 07/04/24 14:29 Oxygen Delivery Method Room Air 07/04/24 14:29 BMI result Body Mass Index 46.5 Const General: cooperative, healthy appearing and comfortable Nutritional Appearance: obese morbidly obese Orientation/consciousness: patient oriented x3 Limitations: no limitations HEENT Head: Yes normocephalic and Yes atraumatic Mouth: moist mucous membranes Resp Effort & Inspection: normal respiratory effort and able to speak in complete sentences Cardio Rate: regular rate Skin General skin exam: no rashes or lesions noted Neuro General: patient oriented x3 Extrem Other: No active synovitis both hands Multiple thoracic and lumbar paraspinal muscle tenderness Right knee pain with full flexion-extension No significant swelling Assessment & Plan Assessment & Plan (1) Fibromyalgia: Code(s): M79.7 - Fibromyalgia Category: Medical Plan: This is a 53-year-old female with fibromyalgia and osteoarthritis who presents for follow-up. Her fibromyalgia symptoms are stable on gabapentin 600 mg daily and tramadol 100 mg Twice daily. Can continue with current regimen. Follow-up in 6 months (2) Osteoarthritis of right knee: Code(s): M17.11 - Unilateral primary osteoarthritis, right knee Category: Medical Qualifiers: Osteoarthritis type: primary Qualified Code(s): M17.11 - Unilateral primary osteoarthritis, right knee Plan: Advised patient to try using OTC Voltaren gel 4 times a day. If no improvement, patient can call the office come back for an injection (3) Generalized osteoarthritis of multiple sites: Code(s): M15.9 - Polyosteoarthritis, unspecified Category: Medical Plan: Patient has been tolerating tramadol 100 mg Twice daily for years that any side effects. She can continue with that Plan I spent 16 minutes reviewing patient's chart, evaluating patient, ordering diagnostic workup, counseling patient and documenting in the chart Medications: Changed From gabapentin 600 mg PO TID 90 tabs 5RF M79.7 - Fibromyalgia To gabapentin 600 mg PO DAILY 90 tabs 1RF M79.7 - Fibromyalgia Coding Level of Care Code Est Pt Level 3 (64310) Diagnoses Fibromyalgia M79.7 Primary osteoarthritis of right knee M17.11 Osteoarthritis type: primary Generalized osteoarthritis of multiple sites M15.9
[2024-07-04 14:29] VITALS: BP 115/64; PULSE 66; O2SAT 97; BMI 46.5
== END 2024-07-04 15:05 | disposition home or self-care (01) ==
PROVIDERS: PCP Internal Medicine Geriatric Medicine; Visit Provider Student in an Organized Health Care Education/Training Program
DX: M79.7 Fibromyalgia (principal); M17.11 Unilateral primary osteoarthritis, right knee; M15.9 Polyosteoarthritis, unspecified
CPT/HCPCS: 99213

== ENCOUNTER → 2024-07-04 14:17 | Outpatient (BNVA) | payer OTHER, SELFPAY | PROVIDERS: PCP Internal Medicine Geriatric Medicine; Visit Provider Student in an Organized Health Care Education/Training Program | DX: M79.7 Fibromyalgia (principal); M17.11 Unilateral primary osteoarthritis, right knee | CPT/HCPCS: 99212 ==

== ENCOUNTER 2024-10-11 11:22 | Outpatient (AMB) | payer BC, SELFPAY ==
[2024-10-11 11:24] VITALS: BP 134/69; PULSE 80; BMI 46.8
--- NOTE | 2024-10-11 11:24 | A.OFFVIS_ITS ---
Vital Signs 10/11/24 11:24 Height 5 ft 2 in Weight 255 lb 11.779 oz BMI 46.8 BP 134/69 Blood Pressure Location Rt brachial Position Sitting Pulse 80 Pulse Source Pulse Oximeter Intake Visit Reasons: fibro, oa Intake Note: Patient presents here today to establish treatment for Fibromyalgia/OA. Lower back, right knee, behind the neck pain. for several days. Lightning Protection Installer Required: Yes Lightning Protection Installer Language: Feed In Worker Services: Lightning Protection Installer Offered & Declined Accompanied by: Self / Same As Patient Allergies morphine [Morphine] Allergy (Severe, Verified 10/11/24 11:26) ANAPHYLAXIS, shortness of breath Medication List - Last Reconciled 10/11/24 by Daly Toribio MD amitriptyline 10 mg PO BEDTIME calcium carbonate-vitamin D3 500 mg-5 mcg (200 unit) (Oyster Shell Calcium- Vitamin D3) 1 tab PO BID clotrimazole-betamethasone 1-0.05 % appl topical docusate sodium 100 mg PO BID Donut pillow As directed fluticasone propionate 50 mcg/actuation 2 sprays intranasal QAM gabapentin 600 mg PO DAILY ibuprofen 600 mg PO Q8H PRN lidocaine 5% 1 patch topical DAILY naproxen sodium (Anaprox DS) 550 mg PO BID PRN sertraline 50 mg PO QAM tizanidine 2 mg PO BEDTIME PRN tramadol 100 mg (2 x 50 mg) PO BID PRN HPI Comments Details: Patient is a 53-year-old morbidly obese female with polyarticular osteoarthritis and fibromyalgia here today for follow up Interval History: Patient last seen 07/04/[address] Mena. At that time she continued to have lower back pain as well as midthoracic pain. At that time his evaluation noted that her fibromyalgia symptoms are stable on her gabapentin and tramadol and the regimen was continued Today, She complains of neck pain x 3 days. Muscle spasm Right knee pain - associated with some swelling Rheumatologic History: Fibromyalgia and polyarticular osteoarthritis Current Rheumatology Medication(s): Gabapentin 600 mg daily. 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 (nsaid) Generalized osteoarthritis of multiple sites Migraines Fibromyalgia Arthritis Lumbar spondylosis Surgical History H/O gastric bypass Hx of bilateral cataract extraction Hx of hysterectomy Family History (Reviewed 10/11/24 @ 11: by AYDE Denise) Mother Hypertension Stroke Dementia Father Heart disease Thyroid disease Sister Thyroid disease Social History (Reviewed 10/11/24 @ 11: by AYDE Denise) Household Members: Spouse Housing: Apartment Alcohol intake: never Patient Tobacco Use Status: Never used Tobacco Review of Systems Const Details: Review of Systems Constitutional: Denies fever, chills, weight loss ENT: Denies vision changes, eye pain or eye redness, dental caries, dry mouth GI: Denies nausea, vomiting, diarrhea, abdominal pain, change in BM Pulm: Denies SOB, SMITH, hemoptysis, wheezing Cards: Denies chest pain, palpitations Skin: Denies Raynaud's, rash, nail changes, photosensitivity, BIOMEDICAL ENGINEERING DIRECTOR: Denies headaches, weakness, paresthesias, recurrent falls MSK: as per HPI All other systems reviewed and are unremarkable except noted above Physical Exam Vital Signs: Last Vital Signs Pulse 80 10/11/24 11:24 BP 134/69 10/11/24 11:24 BMI result Body Mass Index 46.8 Vital signs reviewed Physical Examination CONSTITUITIONAL Patient alert and cooperative. Well appearing and in no apparent painful distress HEENT Conjunctiva and sclera clear. ?Pupils equal round and reactive to light. ?No lymphadenopathy. ? CHEST/RESPIRATORY SYSTEM Normal respiratory effort and able to speak in complete sentences. ?Clear to auscultation bilaterally. ?No crackles, rales, rhonchi, wheezes heard. CARDIAC SYSTEM Regular rate and rhythm. ?S1 and S2 heard no murmurs. 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 No deformities noted. ?No synovitis noted to the MCPs, PIPs or DIPs. ?No tenderness to palpation of these joints. Wrists: ?Full range of motion at the wrists without pain. ?No tenderness to palpation or synovitis noted to the wrists. Elbows: Full range of motion without pain. No tenderness, weakness, swelling, increased warmth or erythema. Shoulders: Full range of motion without pain. No tenderness, weakness, swelling, increased warmth or erythema. Hips: Full range of motion without pain. Hip bursa: TTP Knees: ?Full range of motion. ?No tenderness, swelling, increased warmth or erythema.?Bilateral crepitations felt. TTP of the right knee joint Ankles: Full range of motion. ?No tenderness, swelling, increased warmth or erythema.? Feet: ?Negative squeeze test. ?No tenderness to palpation or swelling of the MTPs. Tender points:?Tenderness to palpation of the bilateral trapezius, supraspinatus, greater trochanters, anterior costochondral junctions, bilateral gluteal areas, bilateral suboccipital muscle insertions SKIN Skin intact without rashes. Office Procedures AMB Joint Injection/Aspiration Joint Injection/Aspiration Details: Procedure was explained to the patient and consent was obtained. ? The area of interest was identified and confirmed with patient. ?This was subsequently cleaned with chlorhexidine x3. ? The area was then anesthetized using ethyl chloride spray. 40 mg Kenalog with 1 cc 1% lidocaine was injected without issue. ?Minimal to no bleeding. ?Patient tolerated procedure. Primary Site: right knee Prep: site was prepped using aseptic technique and ethochloride spray was applied Injected: 40 mg of, DepoMedrol, with 1 mL of and 1% plain lidocaine Approach Used: anterior Procedure: The patient tolerated the procedure well Coding 08016 - Large joint Procedure code (CPT) selection complete Office Meds lidocaine (PF) 10 mg/mL (1 %) injection solution Performing Provider: Daly Toribio MD Performing Location: [facility] [place] [facility] Administered by: Daly Toribio MD on 10/11/24 12:23 Dose Route Admin Location Dispensed Lot Number Expiration Date [facility] Buffing Machine Tender 10 mg Infiltration Right knee 2 mL [id number] 12/05/26 65561-668-61 [employer] [facility] Kenalog 40 mg/mL suspension for injection Performing Provider: Daly Toribio MD Performing Location: [facility] [place] [facility] Administered by: Daly Toribio MD on 10/11/24 12:23 Dose Route Admin Location Dispensed Lot Number Expiration Date [employer] Buffing Machine Tender 40 mg intra-articular right knee 1 mL [id number] 03/06/26 [address]-6 [employer] Results Reviewed Results Reviewed: Laboratory Tests 07/03/24 08:35 WBC 4.8 RBC 4.42 Hgb 12.7 Hct 40.5 Plt Count 163 ESR 12 Sodium 139 Potassium 4.1 Chloride 109 H Carbon Dioxide 27 BUN 13 Creatinine 0.61 Alkaline Phosphatase 124 H C-Reactive Protein 0.38 Total Protein 6.6 XR Bilateral Knees 02/2023 FINDINGS: On standing knee view, left knee is higher than the right. Bones are demineralized. No acute fracture or dislocation. Right: Severe medial, moderate lateral knee joint narrowings. Degenerative spurring. Left: Tricompartment spurring. Moderate medial, lateral knee and patellofemoral narrowings. Question small suprapatellar effusion. Assessment & Plan Assessment & Plan (1) Generalized osteoarthritis of multiple sites: Code(s): M15.9 - Polyosteoarthritis, unspecified Category: Medical Plan: #Polyarticular OA Patient is a 53 y.o. morbidly obese female with polyarticular OA. Today complaining of right knee pain with TTP of the joint line on exam. Discussed steroid injection and patient amenable Plan - S/p steroid injection - Topical diclofenac gel 4 times a day for bilateral knees - RTC 1 year (2) Fibromyalgia: Code(s): M79.7 - Fibromyalgia Category: Medical Plan: #Fibromyalgia Patient with fibromyalgia overall the same. Recommended increasing her gabapentin and adding tizanidine Plan - Encouraged weightloss - Gabapentin 600mg bid - Tramadol 100mg bid - Stop amitriptyline since patient is already on tramadol - Tizanidine 2 mg at bedtime. A 14 day supply Plan I spent 20 minutes reviewing the record and labs, taking a history, examining the patient, discussing the treatment plan and documenting in the medical record Orders: Orders AMB Joint Injection/Aspiration Today M17.11 - Unilateral primary osteoarthritis, right knee Medications: New diclofenac sodium 1% (Arthritis Pain (diclofenac)) apply to single knee, ankle, foot; for foot includes sole/toes/top of foot 4 grams topical QID 100 grams 6RF M15.9 - Polyosteoarthritis, unspecified lidocaine (PF) 10 mg Infiltration ONCE 2 mL 0RF M17.11 - Unilateral primary osteoarthritis, right knee Kenalog (triamcinolone acetonide) 40 mg intra-articular ONCE 1 mL 0RF NS M17.11 - Unilateral primary osteoarthritis, right knee Changed From tramadol 100 mg (2 x 50 mg) PO BID PRN 120 tabs 2RF pain M47.816 - Spondylosis without myelopathy or radiculopathy, lumbar region To tramadol 100 mg (2 x 50 mg) PO BID 90 days 360 tabs 3RF pain M47.816 - Spondylosis without myelopathy or radiculopathy, lumbar region From gabapentin 600 mg PO DAILY 90 tabs 1RF M79.7 - Fibromyalgia To gabapentin 600 mg PO BID 180 tabs 3RF M79.7 - Fibromyalgia From tizanidine start with 1/2 tab as medication can be sedating 2 mg PO BEDTIME PRN Muscle Spasm M79.7 - Fibromyalgia To tizanidine start with 1/2 tab as medication can be sedating 2 mg PO BEDTIME PRN 14 tabs 0RF Muscle Spasm M79.7 - Fibromyalgia Coding Level of Care Code Est Pt Level 3 (84225) Diagnoses Generalized osteoarthritis of multiple sites M15.9 Fibromyalgia M79.7 CPT Codes Coding - 31840 Large joint: 38254 - Large joint ([id number])
== END 2024-10-11 12:23 | disposition home or self-care (01) ==
PROVIDERS: PCP Internal Medicine Geriatric Medicine; Visit Provider Student in an Organized Health Care Education/Training Program
DX: M15.9 Polyosteoarthritis, unspecified (principal); M79.7 Fibromyalgia; M17.11 Unilateral primary osteoarthritis, right knee
CPT/HCPCS: 20610; 99213

== ENCOUNTER → 2024-10-11 11:22 | Outpatient (BNVA) | payer BC, SELFPAY | PROVIDERS: PCP Internal Medicine Geriatric Medicine; Visit Provider Student in an Organized Health Care Education/Training Program | DX: M79.7 Fibromyalgia (principal); M17.11 Unilateral primary osteoarthritis, right knee; M47.816 Spondylosis without myelopathy or radiculopathy, lumbar region | CPT/HCPCS: 20610; J2003; J3300 ==

== ENCOUNTER 2025-04-11 15:24 | Outpatient (REF) | payer BC, SELFPAY ==
--- OUTSIDE RECORDS SUMMARY | 2025-04-11 15:55 | XMS_ITS | Encounter Summary ---
Author Organization [facility] Address [address] [place] [address] [address] [place] [address] Care Team Providers Care Fabric Lay Out Worker Name Role Phone Name, Evert BEASLEY Primary Care Provider [phone] Encounter Details Date Type Department Care Team ([facility] st Contact Info) Description 06/07/2023 Abstract [facility] MEDICINE [address] [place], [place] [id number] Name, MD Evert [address] [place] [address] Social History Tobacco Use Types Packs/Day Years Used Date Smoking Tobacco: Never Passive Smoke Exposure: Never Smokeless Tobacco: Never Alcohol Use Standard Drinks/Week Comments Never 0 (1 standard drink = 0.6 oz pur e alcohol) Depression Answer Date Recorded Patient Health Questionnaire-9 Score 8 04/15/2023 Depression Answer Date Recorded Patient Health Questionnaire-2 Score 2 04/15/2023 Comments Unknown Sex and Gender Information Value Date Recorded Sex Assigned at Female 07/06/2022 10:18 AM EDT Legal Sex Female 10:18 AM EDT Gender Identity Female 07/06/2022 10:18 AM EDT Sexual Orientation Straight 07/20/2023 2: 08 PM EST documented as of this encounter Plan of Treatment Not on file documented as of this encounter Procedures Procedure Name Priority Date/Time Associated Diagnosis Comments MAMMOGRAPHY Routine 05/27/2023 documented in this encounter Results * Mammography (05/27/2023) Mammogram Negative Comment:Bi-rads 1 Negative, repeat 1 year Anatomical Region Laterality Modality Other Evert Phillips MD HEALTH MAINTENANCE Final Result documented in this encounter Visit Diagnoses Not on filedocumented in this encounter Additional Health Concerns Assessment Noted Time PHQ-9 Depression Total Score: 8 04/15/20 23 11:10 AM EDT documented as of this encounter Care Teams Fabric Lay Out Worker Relationship Specialty Start Date End Date Name, MD Evert [address] [place] [id number] PCP - General Family Medicine 04/19/19 documented as of this encounter
[2025-04-11 16:30] LABS: Appearance Urine Clear; Glucose Urine UA Negative (Negative); PH 5.5 (5.0-9.0); Specific Gravity - Urine 1.025 (1.005-1.025)
[2025-04-11 16:38] LABS: MANUAL DIFF FLAG NO
[2025-04-11 16:43] LABS: Hematocrit 41.0 % (37.0-47.0); Hemoglobin 13.0 g/dl (12.0-16.0); Imm Gran Abs Auto 0.03 X10*3/uL (0.00-0.03); Imm Gran Pct Auto 0.6 % (0.0-0.4); Lymphocytes Absolute Auto 1.6 X10*3/uL (1.2-4.9); Mean Corpuscular HGB Conc 31.7 g/dl (31.0-35.0); Mean Corpuscular Hemoglobin 28.3 pg (27.0-33.0); Mean Corpuscular Volume 89.3 fL (80.0-98.0); NRBC Abs Auto 0.000 X10*3/uL (0.0-0.012); NRBC Pct Auto 0.0 /100WBC (0.0-0.2); Platelet Count 184 X10*3/uL (160-400); Red Blood Count 4.59 X10*6/uL (4.20-5.50); White Blood Count 5.1 X10*3/uL (4.8-10.8)
[2025-04-11 17:04] LABS: Parathyroid Hormone Intact 291.1 pg/mL (8.7-77.1)
[2025-04-11 18:03] LABS: Alanine Aminotransferase 18 U/L (0-31); Albumin Level 4.3 g/dL (3.5-5.0); Alkaline Phosphatase 136 U/L (39-117); Anion Gap 12 (12-20); Aspartate Amino Transferase 21 U/L (5-31); Blood Urea Nitrogen 14 mg/dL (9-16); Calcium 9.7 mg/dL (8.4-10.2); Carbon Dioxide 26 mmol/L (22-29); Chloride 108 mmol/L (96-108); Estimated Glomerular Filt Rate > 60; Iron 45 mcg/dL (30-160); Percent Iron Saturation 20 % (15-50); Potassium 4.2 mmol/L (3.3-5.1); Sodium 142 mmol/L (135-145); Total Iron Binding Capacity 230 mcg/dL (228-428); Total Protein 7.0 g/dL (6.5-8.0); Unsaturated Iron Binding 185 ug/dL
[2025-04-11 18:11] LABS: Ferritin 111 ng/mL (10-250)
[2025-04-11 18:22] LABS: Folate 10.9 ng/mL (> or = 4.0); Vitamin B12 374 pg/mL (200-900)
== END 2025-04-11 15:25 | disposition home or self-care (01) ==
LOC: HO.HHCL 15:24
PROVIDERS: PCP Internal Medicine Geriatric Medicine; Visit Provider Internal Medicine Geriatric Medicine
DX: R30.0 Dysuria (principal); F32.A Depression, unspecified; Z98.84 Bariatric surgery status
CPT/HCPCS: 36415; 80053; 81001; 82306; 82607; 82728; 82746; 83540; 83970; 84443; 85025

== ENCOUNTER 2025-04-25 12:20 | Outpatient (AMB) | payer BC, SELFPAY ==
[2025-04-25 12:46] VITALS: BP 130/62; PULSE 61; O2SAT 97; BMI 48.9
--- NOTE | 2025-04-25 12:46 | A.OFFVIS_ITS ---
Vital Signs 04/25/25 12:46 Height 5 ft 2 in Weight 267 lb 6.731 oz BMI 48.9 BP 130/62 Blood Pressure Location Lt brachial Position Sitting Pulse 61 Pulse Source Pulse Oximeter Pulse Oximetry (%) 97 Oxygen Delivery Method Room Air Intake Visit Reasons: injection in the right knee Intake Note: Patient presents for right knee injection, pain is worse. She is requesting refill of Tramadol today. Allergies morphine (Morphine) Allergy (Severe, Verified 04/25/25 12:51) ANAPHYLAXIS, shortness of breath Medication List - Last Reconciled 04/25/25 by Daly Toribio MD calcium carbonate-vitamin D3 500 mg-5 mcg (200 unit) (Oyster Shell Calcium- Vitamin D3) 1 tab PO BID clotrimazole-betamethasone 1-0.05 % appl topical diclofenac sodium 1% (Arthritis Pain (diclofenac)) 4 grams topical QID docusate sodium 100 mg PO BID Donut pillow As directed fluticasone propionate 50 mcg/actuation 2 sprays intranasal QAM gabapentin 600 mg PO BID lidocaine 5% 1 patch topical DAILY naproxen sodium (Anaprox DS) 550 mg PO BID PRN sertraline 50 mg PO QAM tizanidine 2 mg PO BEDTIME PRN tramadol 100 mg (2 x 50 mg) PO BID 30 days HPI Comments Details: Patient is a 54-year-old morbidly obese female with polyarticular osteoarthritis and fibromyalgia here today for follow up Interval History: Patient last seen 10/11/2024 with me - On gabapentin, tramadol, amitriptyline - C/o right knee pain and muscle spasms of the neck - s/p right knee steroid injection - Stopped amitriptyline - Started tizanidine Today - On gabapentin, tramadol, tizanidine - Right knee improved after injection and lasted for 6 months, return of knee pain today - asking for refills Rheumatologic History: Fibromyalgia and polyarticular osteoarthritis Current Rheumatology Medication(s): Gabapentin 600 mg daily. Tramadol 100 mg twice daily Amitriptyline 10 mg at bedtime [facility] Medical History emt intermediate (current) use of non-steroidal anti-inflammatories (nsaid) Generalized osteoarthritis of multiple sites Migraines Fibromyalgia Arthritis Lumbar spondylosis Surgical History H/O gastric bypass Hx of bilateral cataract extraction Hx of hysterectomy Family History Mother Hypertension Stroke Dementia Father Heart disease Thyroid disease Sister Thyroid disease Social History Household Members: Spouse Housing: Apartment Alcohol intake: never Patient Tobacco Use Status: Never used Tobacco Review of Systems Const Details: Review of Systems Constitutional: Denies fever, chills, weight loss ENT: Denies vision changes, eye pain or eye redness, dental caries, dry mouth GI: Denies nausea, vomiting, diarrhea, abdominal pain, change in BM Pulm: Denies SOB, SMITH, hemoptysis, wheezing Cards: Denies chest pain, palpitations Skin: Denies Raynaud's, rash, nail changes, photosensitivity, [employer]: Denies headaches, weakness, paresthesias, recurrent falls MSK: as per HPI All other systems reviewed and are unremarkable except noted above Physical Exam Exam Exam: Vital signs reviewed Physical Examination CONSTITUITIONAL Patient alert and cooperative. Well appearing and in no apparent painful distress MSK Hands * Right Hand: Able to make a fist. No swelling or tenderness to palpation of these joints. No deformities noted. * Left Hand: Able to make a fist. No swelling or tenderness to palpation of these joints. No deformities noted. Wrists * Right Wrist: Full ROM. 70 degrees of wrist flexion, 80 degrees of wrist extension. No swelling or TTP * Left Wrist: Full ROM. 70 degrees of wrist flexion, 80 degrees of wrist extension. No swelling or TTP Elbows * Right Elbow: Full ROM. No swelling or TTP. No TTP of the medial and lateral epicondyles * Left Elbow: Full ROM. No swelling or TTP. No TTP of the medial and lateral epicondyles Shoulders * Right shoulder: Full ROM. No swelling noted. No TTP of the AC joint, subacromial bursa or posterior shoulder * Left shoulder: Full ROM. No swelling noted. No TTP of the AC joint, subacromial bursa or posterior shoulder Hip bursa: No tenderness to palpation bilaterally Knees * Right knee: Full ROM. No swelling noted. TTP of the knee joint line * Left knee: Full ROM. No swelling noted. No TTP of the knee joint lie or pes anserine bursa. * Crepitations felt bilaterally Ankles * Right ankle: Good ankle dorsiflexion and plantar flexion. No swelling. No TTP of the ankle joint * Left ankle: Good ankle dorsiflexion and plantar flexion. No swelling. No TTP of the ankle joint Feet * Right foot: Negative squeeze test * Left foot: Negative squeeze test Tender points? * No tenderness to palpation of the bilateral trapezius, supraspinatus, anterior costochondral junctions, bilateral suboccipital muscle insertions SKIN No rashes Vital Signs: Last Vital Signs Pulse 61 04/25/25 12:46 BP 130/62 04/25/25 12:46 Pulse Ox 97 04/25/25 12:46 Oxygen Delivery Method Room Air 04/25/25 12:46 BMI result Body Mass Index 48.9 Results Reviewed Results Reviewed: Laboratory Tests 07/03/24 08:35 WBC 4.8 RBC 4.42 Hgb 12.7 Hct 40.5 Plt Count 163 ESR 12 Sodium 139 Potassium 4.1 Chloride 109 H Carbon Dioxide 27 BUN 13 Creatinine 0.61 Alkaline Phosphatase 124 H C-Reactive Protein 0.38 Total Protein 6.6 XR Bilateral Knees 02/2023 FINDINGS: On standing knee view, left knee is higher than the right. Bones are demineralized. No acute fracture or dislocation. Right: Severe medial, moderate lateral knee joint narrowings. Degenerative spurring. Left: Tricompartment spurring. Moderate medial, lateral knee and patellofemoral narrowings. Question small suprapatellar effusion. Assessment & Plan Assessment & Plan (1) Generalized osteoarthritis of multiple sites: Code(s): M15.9 - Polyosteoarthritis, unspecified Category: Medical Plan: #Polyarticular OA Patient is a 54 y.o. morbidly obese female with polyarticular OA. Today complain ing of right knee pain with TTP of the joint line on exam. Improved after steroid injection the last time Will repeat it today Plan - S/p steroid injection - Topical diclofenac gel 4 times a day for bilateral knees - RTC 6 months (2) Fibromyalgia: Code(s): M79.7 - Fibromyalgia Category: Medical Plan: #Fibromyalgia Patient with fibromyalgia overall the same. Plan - Encouraged weightloss - Gabapentin 600mg bid - Tramadol 100mg bid - Tizanidine 2 mg at bedtime, 30 pills Plan I spent 20 minutes reviewing the record and labs, taking a history, examining the patient, discussing the treatment plan and documenting in the medical record Medications: Changed From tramadol 100 mg (2 x 50 mg) PO BID 90 days 360 tabs 3RF pain M47.816 - Spondylosis without myelopathy or radiculopathy, lumbar region To tramadol 100 mg (2 x 50 mg) PO BID 120 tabs 5RF pain 30 days M47.816 - Spondylosis without myelopathy or radiculopathy, lumbar region Refilled gabapentin 600 mg PO BID 180 tabs 3RF M79.7 - Fibromyalgia tizanidine start with 1/2 tab as medication can be sedating 2 mg PO BEDTIME PRN 30 tabs 0RF Muscle Spasm M79.7 - Fibromyalgia diclofenac sodium 1% (Arthritis Pain (diclofenac)) apply to single knee, ankle, foot; for foot includes sole/toes/top of foot 4 grams topical QID 100 grams 6RF M15.9 - Polyosteoarthritis, unspecified Coding Level of Care Code Est Pt Level 3 (11067) Diagnoses Generalized osteoarthritis of multiple sites M15.9 Fibromyalgia M79.7
--- OUTSIDE RECORDS SUMMARY | 2025-04-25 13:18 | XMS_ITS | Encounter Summary ---
Author Organization [employer] Address [address] [place] [address] [address] [place] [address] Care Team Providers Care Office Worker Name Role Phone Name, Evert BEASLEY Primary Care Provider [phone] Encounter Details Date Type Department Care Team ([facility] st Contact Info) Description 06/07/2023 Abstract [facility] MEDICINE [address], [place] [phone] Name, MD Evert [address] [place] [address] Social History Tobacco Use Types Packs/Day Years [...] documented as of this encounter Care Teams Office Worker Relationship Specialty Start Date End Date Name, MD Evert [address] [place] [id number] PCP - General Family Medicine 04/19/19 documented as of this encounter
== END 2025-04-25 13:21 | disposition home or self-care (01) ==
LOC: HO.RHES 12:20
PROVIDERS: PCP Internal Medicine Geriatric Medicine; Visit Provider Student in an Organized Health Care Education/Training Program
DX: M15.9 Polyosteoarthritis, unspecified (principal); M79.7 Fibromyalgia; M17.11 Unilateral primary osteoarthritis, right knee
CPT/HCPCS: 20610; 99213

== ENCOUNTER → 2025-04-25 12:20 | Outpatient (BNVA) | payer BC, SELFPAY | PROVIDERS: PCP Internal Medicine Geriatric Medicine; Visit Provider Student in an Organized Health Care Education/Training Program | DX: M15.9 Polyosteoarthritis, unspecified (principal); M79.7 Fibromyalgia; M25.561 Pain in right knee | CPT/HCPCS: 20610; J2003; J3300 ==